=== PATIENT | female | born 1940 | race African-American/Black ===

== ENCOUNTER 2016-11-10 08:26 | Emergency (ER) | payer OTHER, MEDICAID ==
[~2016-11-10] VITALS: Ht 162.6 cm; Wt 182.0 kg
[~2016-11-10 08:26] MED LIST: AMLO2.5T45 PO; ATOR20TA65 PO; BIMA2.5D4 EACHEYE; BRIM5DRO EACHEYE; CLON0.1T PO; HYDR-4134 PO; LEVO50TA8 PO; LINA5TAB PO; LISI40TA4 PO; LOSA25TA12 PO; METF500T4 PO; NEBI5TAB3 PO; OMEP40CA34 PO; POTA10TA15 PO; XAR15 GT; XAR15 PO
[2016-11-10] MEDS ORDERED: METOCLOPRAMIDE HCL 10MG/2ML VIAL IV ONE (09:00)
[2016-11-10 09:38] LABS: EOSINOPHILS % 1.5 % (0.0-5.0); HEMATOCRIT. 32.9 % (36.0-48.0); HEMOGLOBIN. 10.9 g/dL (12.0-16.0); LYMPHOCYTES % 28.6 % (20.0-50.0); MEAN CORPUSCULAR HEMOGLOBIN 28.6 pg (28.0-32.0); MEAN CORPUSCULAR VOLUME 86.1 fL (81.0-99.0); MEAN PLATELET VOLUME 7.9 fl (7.4-10.4); MONOCYTES % 4.5 % (2.0-8.0); NEUTROPHILS % 64.4 % (40.0-76.0); PLATELET 297 x1000/uL (130-400); RED BLOOD CELL COUNT 3.82 mill/uL (4.2-5.4); RED CELL DISTRIBUTION WIDTH 14.8 % (11.6-14.6)
[2016-11-10 09:44] LABS: CARBON DIOXIDE 31 mEq/L (21-32); CHLORIDE 105 mEq/L (98-107)
[2016-11-10 15:28] VITALS: BP 151/89
== END 2016-11-10 15:32 | disposition home or self-care (01) ==
LOC: ER 08:39
DX: K59.09 Other constipation (principal); I10 Essential (primary) hypertension; E11.9 Type 2 diabetes mellitus without complications; Z88.6 Allergy status to analgesic agent; Z79.84 Long term (current) use of oral hypoglycemic drugs; Z86.73 Personal history of transient ischemic attack (TIA), and cerebral infarction without residual deficits; Z87.898 Personal history of other specified conditions; Z86.718 Personal history of other venous thrombosis and embolism; Z79.01 Long term (current) use of anticoagulants
CPT/HCPCS: 36415; 80053; 83690; 85025; 96374; 99284; J2765

== ENCOUNTER 2016-12-06 08:16 | Emergency (ER) | payer OTHER, MEDICAID ==
[~2016-12-06] VITALS: Ht 172.7 cm; Wt 160.0 kg
[2016-12-06] MEDS ORDERED: DIPHENHYDRAMINE 50MG/ML VIAL IV ONE (09:00)
[2016-12-06] MEDS ORDERED: ONDANSETRON HCL 4MG/2ML VIAL IV ONE (09:15)
[2016-12-06] MEDS ORDERED: MORPHINE SULFATE 4 MG/ML CPJ (NOT FOR IM USE) IV ONE (09:15)
[2016-12-06 09:23] LABS: BASOPHILS % 0.8 % (0.0-2.0); EOSINOPHILS % 2.4 % (0.0-5.0); HEMATOCRIT. 34.7 % (36.0-48.0); HEMOGLOBIN. 11.4 g/dL (12.0-16.0); LYMPHOCYTES % 35.4 % (20.0-50.0); MEAN CORPUSCULAR HEMOGLOBIN 28.6 pg (28.0-32.0); MEAN PLATELET VOLUME 7.5 fl (7.4-10.4); MONOCYTES % 4.5 % (2.0-8.0); NEUTROPHILS % 56.9 % (40.0-76.0); PLATELET 310 x1000/uL (130-400); RED BLOOD CELL COUNT 3.99 mill/uL (4.2-5.4); RED CELL DISTRIBUTION WIDTH 14.7 % (11.6-14.6)
[2016-12-06 09:25] LABS: CLARITY URINE CLOUDY (CLEAR); COLOR URINE YELLOW (YELLOW); GLUCOSE URINE 1+ (NEGATIVE); KETONES URINE NEGATIVE (NEGATIVE); LEUKOCYTE ESTERASE URINE 1+ (NEGATIVE); NITRITE URINE POSITIVE (NEGATIVE); OCCULT BLOOD URINE 1+ (NEGATIVE); PH URINE 6.5 (4.5-8.0); PROTEIN URINE 2+ (NEGATIVE); SPECIFIC GRAVITY URINE 1.023 (1.005-1.030)
[2016-12-06 09:30] LABS: CARBON DIOXIDE 30 mEq/L (21-32); CHLORIDE 105 mEq/L (98-107)
[2016-12-06] MEDS ORDERED: AMOXICILLIN/POTASSIUM CLAVULANATE 875/125MG TAB PO NR (11:15)
[2016-12-06 14:47] VITALS: BP 134/79
== END 2016-12-06 14:48 | disposition home or self-care (01) ==
LOC: ER 08:16
DX: N39.0 Urinary tract infection, site not specified (principal); E66.01 Morbid (severe) obesity due to excess calories; I10 Essential (primary) hypertension; E11.9 Type 2 diabetes mellitus without complications; E03.9 Hypothyroidism, unspecified; Z88.6 Allergy status to analgesic agent; Z68.43 Body mass index [BMI] 50.0-59.9, adult; Z86.718 Personal history of other venous thrombosis and embolism; Z79.899 Other long term (current) drug therapy
CPT/HCPCS: 36415; 74176; 80048; 81001; 85025; 93970; 99285; J2270; J2405

== ENCOUNTER 2016-12-10 20:22 | Emergency (ER) | payer OTHER, MEDICAID ==
[~2016-12-10] VITALS: Ht 165.1 cm; Wt 160.0 kg
[2016-12-10] MEDS ORDERED: OXYCODONE HCL/ACETAMINOPHEN 5/325MG TABLET PO ONE (22:00)
[2016-12-10] MEDS ORDERED: CEFTRIAXONE 1 G PREMIX 50 ML IV ONE (22:00)
[2016-12-10 22:44] LABS: BASOPHILS % 0.9 % (0.0-2.0); CHLORIDE 106 mEq/L (98-107); EOSINOPHILS % 2.8 % (0.0-5.0); HEMATOCRIT. 32.6 % (36.0-48.0); HEMOGLOBIN. 10.9 g/dL (12.0-16.0); LYMPHOCYTES % 37.9 % (20.0-50.0); MEAN CORPUSCULAR HEMOGLOBIN 28.8 pg (28.0-32.0); MEAN PLATELET VOLUME 7.6 fl (7.4-10.4); NEUTROPHILS % 52.4 % (40.0-76.0); PLATELET 314 x1000/uL (130-400); RED BLOOD CELL COUNT 3.79 mill/uL (4.2-5.4); RED CELL DISTRIBUTION WIDTH 14.7 % (11.6-14.6)
[2016-12-10 22:50] LABS: CARBON DIOXIDE 30 mEq/L (21-32)
[2016-12-11 02:13] VITALS: BP 155/76
[2016-12-11 02:24] LABS: CLARITY URINE CLEAR (CLEAR); COLOR URINE DARK YELLOW (YELLOW); GLUCOSE URINE TRACE (NEGATIVE); KETONES URINE NEGATIVE (NEGATIVE); LEUKOCYTE ESTERASE URINE NEGATIVE (NEGATIVE); NITRITE URINE NEGATIVE (NEGATIVE); OCCULT BLOOD URINE 2+ (NEGATIVE); PROTEIN URINE 2+ (NEGATIVE); SPECIFIC GRAVITY URINE 1.032 (1.005-1.030); UROBILINOGEN URINE 0.2 E.U./dL (0.2-1.0)
== END 2016-12-11 05:25 | disposition home or self-care (01) ==
LOC: ER 20:50
DX: N39.0 Urinary tract infection, site not specified (principal); E11.9 Type 2 diabetes mellitus without complications; I10 Essential (primary) hypertension; Z86.718 Personal history of other venous thrombosis and embolism; Z87.442 Personal history of urinary calculi; Z88.6 Allergy status to analgesic agent
CPT/HCPCS: 36415; 51702; 80048; 81001; 85025; 87086; 96365; 99284; J0696; A4315

== ENCOUNTER 2017-04-11 10:37 | Observation (INO) | payer OTHER, MEDICAID ==
[~2017-04-11] VITALS: Ht 165.1 cm; Wt 217.7 kg
[~2017-04-11 10:37] MED LIST changes: +METF-414 PO; -METF500T4 PO
[2017-04-11 11:49] LABS: BASOPHILS % 0.6 % (0.0-2.0); EOSINOPHILS % 0.2 % (0.0-5.0); HEMOGLOBIN. 12.1 g/dL (12.0-16.0); LYMPHOCYTES % 13.3 % (20.0-50.0); MEAN CORPUSCULAR VOLUME 85.8 fL (81.0-99.0); MEAN PLATELET VOLUME 7.5 fl (7.4-10.4); MONOCYTES % 3.5 % (2.0-8.0); NEUTROPHILS % 82.4 % (40.0-76.0); PLATELET 307 x1000/uL (130-400); RED BLOOD CELL COUNT 4.31 mill/uL (4.2-5.4); RED CELL DISTRIBUTION WIDTH 15.2 % (11.6-14.6)
[2017-04-11 12:02] LABS: INR 1.2; PARTIAL THROMBOPLASTIN TIME 32.1 sec (23.4-31.0); PROTHROMBIN TIME 12.4 sec (9.4-11.6)
[2017-04-11 12:07] LABS: CHLORIDE 107 mEq/L (98-107)
[2017-04-11 12:57] LABS: CLARITY URINE CLEAR (CLEAR); COLOR URINE YELLOW (YELLOW); KETONES URINE TRACE (NEGATIVE); LEUKOCYTE ESTERASE URINE NEGATIVE (NEGATIVE); NITRITE URINE NEGATIVE (NEGATIVE); OCCULT BLOOD URINE NEGATIVE (NEGATIVE); PROTEIN URINE 2+ (NEGATIVE); SPECIFIC GRAVITY URINE 1.021 (1.005-1.030)
[2017-04-11] MEDS ORDERED: ASPIRIN 81MG TABLET PO ONE (13:45)
[2017-04-11 20:40] VITALS: BP 153/67
[2017-04-11 21:26] VITALS: BP 153/67
[2017-04-11] MEDS ORDERED: HYDROCODONE/ACETAMINOPHEN 5/325MG TABLET PO PRN (21:45)
[2017-04-11] MEDS ORDERED: DEXTROSE 50% WATER 50ML SYRINGE IV PRN (21:45)
[2017-04-11] MEDS ORDERED: ONDANSETRON HCL 4MG/2ML INJ IV PRN (21:45)
[2017-04-11 22:46] LABS: CREATINE KINASE 85 IU/L (26-192); CREATINE KINASE MB FRACTION 1.2 ng/mL (0.5-3.6)
[2017-04-11] MEDS: METOPROLOL TARTRATE 50MG TABLET PO SCH (22:50)
[2017-04-11] MEDS: LISINOPRIL 40MG TABLET PO SCH (22:50)
[2017-04-11] MEDS: RIVAROXABAN 15 MG TABLET PO SCH (22:51)
[2017-04-12] VITALS (7 sets, daily range): BP systolic 142–165; BP diastolic 50–76
[2017-04-12] MEDS: INSULIN LISPRO 100 UNITS/ML SUBCUT SCH ×4 (05:58→21:11)
[2017-04-12] MEDS: BLOOD SUGAR DIAGNOSTIC STRIP TEST SCH ×4 (05:58→21:11)
[2017-04-12 06:36] LABS: BASOPHILS % 0.8 % (0.0-2.0); EOSINOPHILS % 1.4 % (0.0-5.0); HEMATOCRIT. 31.8 % (36.0-48.0); HEMOGLOBIN. 10.6 g/dL (12.0-16.0); LYMPHOCYTES % 27.5 % (20.0-50.0); MEAN CORPUSCULAR HEMOGLOBIN 28.7 pg (28.0-32.0); MEAN CORPUSCULAR VOLUME 85.8 fL (81.0-99.0); MEAN PLATELET VOLUME 7.9 fl (7.4-10.4); MONOCYTES % 5.2 % (2.0-8.0); NEUTROPHILS % 65.1 % (40.0-76.0); PLATELET 291 x1000/uL (130-400); RED BLOOD CELL COUNT 3.71 mill/uL (4.2-5.4); RED CELL DISTRIBUTION WIDTH 15.1 % (11.6-14.6)
[2017-04-12 06:51] LABS: CHLORIDE 108 mEq/L (98-107); CREATINE KINASE 97 IU/L (26-192); CREATINE KINASE MB FRACTION 1.1 ng/mL (0.5-3.6); HDL CHOLESTEROL 44 mg/dL (40-59); LDL CHOLESTEROL 100 mg/dL (5-100); T4 FREE 1.13 ng/dL (0.76-1.46)
[2017-04-12] MEDS: FAMOTIDINE 20MG/2ML VIAL IV SCH ×2 (08:19→21:10)
[2017-04-12] MEDS: ASPIRIN 81MG EC TABLET PO SCH (08:20)
[2017-04-12] MEDS: LISINOPRIL 40MG TABLET PO SCH (08:20)
[2017-04-12] MEDS: LINAGLIPTIN 5MG TABLET PO SCH (08:20)
[2017-04-12] MEDS: METOPROLOL TARTRATE 50MG TABLET PO SCH ×2 (08:20→21:10)
[2017-04-12] MEDS ORDERED: FUROSEMIDE 40MG/4ML VIAL IVP NR (14:15)
[2017-04-12] MEDS ORDERED: LOSA25TA12 PO (15:19)
[2017-04-12] MEDS ORDERED: HYDR-4134 PO (15:20)
[2017-04-12] MEDS: RIVAROXABAN 15 MG TABLET PO SCH (17:38)
[2017-04-13] VITALS: BP 168/68
[2017-04-13] MEDS: CLONIDINE 0.1MG TABLET PO PRN ×2 (00:08→09:42)
[2017-04-13 04:00] VITALS: BP 162/66
[2017-04-13] MEDS: INSULIN LISPRO 100 UNITS/ML SUBCUT SCH (06:46)
[2017-04-13] MEDS: BLOOD SUGAR DIAGNOSTIC STRIP TEST SCH (06:46)
[2017-04-13 08:00] VITALS: BP 186/75
[2017-04-13] MEDS: LISINOPRIL 40MG TABLET PO SCH (09:41)
[2017-04-13] MEDS: ASPIRIN 81MG EC TABLET PO SCH (09:41)
[2017-04-13] MEDS: FAMOTIDINE 20MG/2ML VIAL IV SCH (09:42)
[2017-04-13] MEDS: LINAGLIPTIN 5MG TABLET PO SCH (09:42)
[2017-04-13] MEDS: METOPROLOL TARTRATE 50MG TABLET PO SCH (09:42)
[2017-05-19] MEDS ORDERED: PILO15DR36 OP (23:31)
[2017-05-19] MEDS ORDERED: PRED1DRO LEFTEYE (23:31)
[2017-05-19] MEDS ORDERED: CYCL2DRO4 LEFTEYE (23:31)
[2017-05-19] MEDS ORDERED: TRU10 EACHEYE (23:31)
== END 2017-04-13 12:30 | disposition home or self-care (01) ==
LOC: ER 10:37 → 8WST 13:50 → INTOOBSV 13:50 → ENRESERV 19:17
PROVIDERS: ADMIT Internal Medicine; ATTEND Internal Medicine
DX: I11.0 Hypertensive heart disease with heart failure (principal); I50.9 Heart failure, unspecified; E11.9 Type 2 diabetes mellitus without complications; D64.9 Anemia, unspecified; E66.01 Morbid (severe) obesity due to excess calories; Z87.442 Personal history of urinary calculi; Z99.3 Dependence on wheelchair; Z86.718 Personal history of other venous thrombosis and embolism
CPT/HCPCS: 36415; 51702; 71045; 80053; 80061; 81003; 82550; 82553; 82962; 83690; 84439; 84443; 84484; 85025; 85379; 85610; 85730; 93005; 93306; 96372; 96374; 96376; 99285; G0378; J1815; J3490; A4315

== ENCOUNTER 2017-11-12 14:05 | Inpatient (IN) | payer OTHER, MEDICAID ==
[~2017-11-12] VITALS: Ht 162.6 cm; Wt 147.4 kg
[~2017-11-12 14:05] MED LIST changes: -AMLO2.5T45 PO; +CYCL2DRO4 LEFTEYE; -LISI40TA4 PO; -METF-414 PO; +METF500T6 PO; -NEBI5TAB3 PO; +PILO15DR36 OP; +PRED1DRO LEFTEYE; +TRU10 EACHEYE; -XAR15 GT
[2017-11-12 16:10] LABS: BASOPHILS % 0.8 % (0.0-2.0); EOSINOPHILS % 1.4 % (0.0-5.0); HEMATOCRIT. 36.6 % (36.0-48.0); HEMOGLOBIN. 12.1 g/dL (12.0-16.0); LYMPHOCYTES % 25.8 % (20.0-50.0); MEAN CORPUSCULAR HEMOGLOBIN 29.4 pg (28.0-32.0); MEAN CORPUSCULAR VOLUME 88.6 fL (81.0-99.0); MEAN PLATELET VOLUME 8.5 fl (7.4-10.4); MONOCYTES % 4.1 % (2.0-8.0); NEUTROPHILS % 67.9 % (40.0-76.0); PLATELET 314 x1000/uL (130-400); RED BLOOD CELL COUNT 4.12 mill/uL (4.2-5.4); RED CELL DISTRIBUTION WIDTH 14.9 % (11.6-14.6)
[2017-11-12 16:11] LABS: CHLORIDE 104 mEq/L (98-107); INR 1.1
[2017-11-12 22:30] VITALS: BP 154/73
[2017-11-12] MEDS ORDERED: HYDROCODONE/ACETAMINOPHEN 5/325MG TABLET PO PRN (23:15)
[2017-11-12] MEDS ORDERED: ACETAMINOPHEN 325MG TABLET PO PRN (23:15)
[2017-11-12] MEDS ORDERED: DEXTROSE 50% WATER 50ML SYRINGE IV PRN (23:30)
[2017-11-13] VITALS: BP 154/73
[2017-11-13] MEDS: SODIUM CHLORIDE 0.45% 1,000 ML IV SCH ×2 (00:29→16:38)
[2017-11-13 04:00] VITALS: BP 116/65
[2017-11-13] MEDS: HYDRALAZINE HCL 50MG TABLET PO SCH ×3 (06:23→21:13)
[2017-11-13] MEDS: PANTOPRAZOLE 40MG DR TABLET PO SCH (06:23)
[2017-11-13] MEDS: BLOOD SUGAR DIAGNOSTIC STRIP TEST SCH ×4 (06:24→21:10)
[2017-11-13] MEDS: INSULIN LISPRO 100 UNITS/ML SUBCUT SCH ×4 (06:24→21:12)
[2017-11-13 07:28] LABS: CHLORIDE 104 mEq/L (98-107)
[2017-11-13 07:48] LABS: LDL CHOLESTEROL 94 mg/dL (5-100)
[2017-11-13 07:50] LABS: HDL CHOLESTEROL 37 mg/dL (40-59)
[2017-11-13 08:00] VITALS: BP 162/62
[2017-11-13] MEDS: ASPIRIN 81MG TABLET PO SCH (08:33)
[2017-11-13] MEDS: LOSARTAN POTASSIUM 50 MG TABLET PO SCH ×2 (08:34→20:18)
[2017-11-13 12:00] VITALS: BP 170/74
[2017-11-13 16:08] VITALS: BP 161/74
[2017-11-13] MEDS: RIVAROXABAN 10 MG TABLET PO SCH (16:39)
[2017-11-13 20:00] VITALS: BP 157/61
[2017-11-14] VITALS: BP 165/70
[2017-11-14 04:00] VITALS: BP 155/77
[2017-11-14] MEDS: HYDRALAZINE HCL 50MG TABLET PO SCH ×3 (05:32→23:14)
[2017-11-14] MEDS: PANTOPRAZOLE 40MG DR TABLET PO SCH (06:22)
[2017-11-14] MEDS: BLOOD SUGAR DIAGNOSTIC STRIP TEST SCH ×4 (06:23→20:31)
[2017-11-14] MEDS: INSULIN LISPRO 100 UNITS/ML SUBCUT SCH ×4 (06:23→20:33)
[2017-11-14 08:00] VITALS: BP 169/71
[2017-11-14] MEDS: LOSARTAN POTASSIUM 50 MG TABLET PO SCH ×2 (08:04→20:25)
[2017-11-14] MEDS: ASPIRIN 81MG TABLET PO SCH (08:04)
[2017-11-14] MEDS: SODIUM CHLORIDE 0.45% 1,000 ML IV SCH (08:06)
[2017-11-14] MEDS ORDERED: METOCLOPRAMIDE HCL 10MG/2ML VIAL IV PRN (10:15)
[2017-11-14 12:00] VITALS: BP 143/60
[2017-11-14] MEDS ORDERED: METOCLOPRAMIDE HCL 10MG/2ML VIAL IV SCH (12:00)
[2017-11-14] MEDS ORDERED: LIDOCAINE HCL 1% 10 MG/ML 10ML VIAL ONE (12:45)
[2017-11-14] MEDS ORDERED: IOHEXOL-300 100 ML BOTTLE ONE (15:47)
[2017-11-14 16:00] VITALS: BP 157/71
[2017-11-14] MEDS: RIVAROXABAN 10 MG TABLET PO SCH (16:24)
[2017-11-14 16:33] LABS: BG CARBOXYHEMOGLOBIN 0.3 % (0.5-1.5); BG DEOXYHEMOGLOBIN 4.5 % (0.0-5.0); BG FRACTION INSPIRED OXYGEN 21; BG HCO3 ACT 28.7 mmol/L (22.0-26.0); BG METHEMOGLOBIN 0.2 % (0.0-1.5); BG OXYGEN SATURATION 95.5 % (92.0-98.5); BG PCO2 43.5 mmHg (35.0-45.0); BG PH 7.437 (7.350-7.450); BG PO2 75.1 mmHg (75.0-100.0); BG SAMPLE SITE LEFT RADIAL
[2017-11-14 20:00] VITALS: BP 138/69
[2017-11-14] MEDS ORDERED: LOSARTAN POTASSIUM 50 MG TABLET PO SCH (21:00)
[2017-11-15] VITALS (7 sets, daily range): BP systolic 113–182; BP diastolic 60–81
[2017-11-15] MEDS: HYDRALAZINE HCL 50MG TABLET PO SCH ×3 (06:34→21:47)
[2017-11-15] MEDS: PANTOPRAZOLE 40MG DR TABLET PO SCH (06:34)
[2017-11-15] MEDS: INSULIN LISPRO 100 UNITS/ML SUBCUT SCH ×4 (06:40→21:00)
[2017-11-15] MEDS: BLOOD SUGAR DIAGNOSTIC STRIP TEST SCH ×4 (06:41→21:00)
[2017-11-15] MEDS: ASPIRIN 81MG TABLET PO SCH (08:16)
[2017-11-15] MEDS: LOSARTAN POTASSIUM 50 MG TABLET PO SCH ×2 (08:16→21:00)
[2017-11-15] MEDS: RIVAROXABAN 10 MG TABLET PO SCH (17:09)
[2017-11-16] MEDS: HYDRALAZINE HCL 50MG TABLET PO SCH (02:40)
== END 2017-11-16 03:45 | disposition home or self-care (01) | DRG 313 ==
LOC: ER 14:56 → EDBEDREQTM 16:32 → EDBEDREQ 16:32 → 8WST 20:25 → ENRESERV 20:25 → EDBEDREQ 21:47
PROVIDERS: ADMIT Internal Medicine; ATTEND Internal Medicine
PROC: 05HY33Z Insertion of Infusion Device into Upper Vein, Percutaneous Approach (ICD-10-PCS; principal; 2017-11-14)
PROC: B54MZZZ Ultrasonography of Right Upper Extremity Veins (ICD-10-PCS; 2017-11-14)
DX: R07.89 Other chest pain (principal); Z68.43 Body mass index [BMI] 50.0-59.9, adult; E03.9 Hypothyroidism, unspecified; E11.9 Type 2 diabetes mellitus without complications; H40.9 Unspecified glaucoma; I10 Essential (primary) hypertension; E66.01 Morbid (severe) obesity due to excess calories; Z86.718 Personal history of other venous thrombosis and embolism; Z86.73 Personal history of transient ischemic attack (TIA), and cerebral infarction without residual deficits; Z87.442 Personal history of urinary calculi; Z88.8 Allergy status to other drugs, medicaments and biological substances; Z79.899 Other long term (current) drug therapy; Z79.01 Long term (current) use of anticoagulants; Z98.51 Tubal ligation status
CPT/HCPCS: 36415; 36569; 36600; 71045; 71275; 74176; 76770; 76937; 80053; 80061; 82375; 82805; 82962; 83880; 84443; 84484; 85025; 85610; 93005; 93970; 96360; 99285; A6261; C1725; C1892; J1815; J3490; Q9967

== ENCOUNTER 2018-03-04 14:17 | Emergency (ER) | payer MEDICARE, MEDICAID ==
[~2018-03-04] VITALS: Ht 170.2 cm; Wt 160.0 kg
[~2018-03-04 14:17] MED LIST changes: +METF-414 PO; -METF500T6 PO
[2018-03-04] MEDS ORDERED: MORPHINE SULFATE 4 MG/ML CPJ (NOT FOR IM USE) IV STA (14:50)
[2018-03-04] MEDS ORDERED: ACETAMINOPHEN 325MG TABLET PO ONE (15:00)
[2018-03-04 16:49] LABS: CHLORIDE 108 mEq/L (98-107)
[2018-03-04 16:53] LABS: BASOPHILS % 0.8 % (0.0-2.0); EOSINOPHILS % 1.9 % (0.0-5.0); HEMATOCRIT. 35.4 % (36.0-48.0); HEMOGLOBIN. 11.2 g/dL (12.0-16.0); LYMPHOCYTES % 33.9 % (20.0-50.0); MEAN CORPUSCULAR HEMOGLOBIN 28.1 pg (28.0-32.0); MEAN CORPUSCULAR VOLUME 88.3 fL (81.0-99.0); MEAN PLATELET VOLUME 8.2 fl (7.4-10.4); MONOCYTES % 4.8 % (2.0-8.0); NEUTROPHILS % 58.6 % (40.0-76.0); PLATELET 312 x1000/uL (130-400); RED CELL DISTRIBUTION WIDTH 15.4 % (11.6-14.6)
[2018-03-04 19:32] VITALS: BP 157/89
== END 2018-03-04 20:37 | disposition home or self-care (01) ==
LOC: ER 14:17
DX: R07.89 Other chest pain (principal); E11.9 Type 2 diabetes mellitus without complications; I10 Essential (primary) hypertension; Z86.718 Personal history of other venous thrombosis and embolism; H40.9 Unspecified glaucoma; E03.9 Hypothyroidism, unspecified; Z87.442 Personal history of urinary calculi; Z86.73 Personal history of transient ischemic attack (TIA), and cerebral infarction without residual deficits; Z98.51 Tubal ligation status; Z88.6 Allergy status to analgesic agent; Z79.84 Long term (current) use of oral hypoglycemic drugs; Z79.899 Other long term (current) drug therapy
CPT/HCPCS: 36415; 71045; 76641; 83880; 84484; 93005; 99284

== ENCOUNTER 2018-03-13 15:32 | Inpatient (IN) | payer MEDICARE, MEDICAID ==
[~2018-03-13] VITALS: Ht 162.6 cm; Wt 152.0 kg
[2018-03-13] MEDS ORDERED: MORPHINE SULFATE 4 MG/ML CPJ (NOT FOR IM USE) IV STA (15:50)
[2018-03-13] MEDS ORDERED: ONDANSETRON HCL 4MG/2ML INJ IV STA (15:50)
[2018-03-13 17:24] LABS: BASOPHILS % 1.1 % (0.0-2.0); EOSINOPHILS % 1.5 % (0.0-5.0); HEMOGLOBIN. 11.4 g/dL (12.0-16.0); LYMPHOCYTES % 33.7 % (20.0-50.0); MEAN CORPUSCULAR HEMOGLOBIN 28.5 pg (28.0-32.0); MEAN CORPUSCULAR VOLUME 87.7 fL (81.0-99.0); MEAN PLATELET VOLUME 8.2 fl (7.4-10.4); MONOCYTES % 4.8 % (2.0-8.0); NEUTROPHILS % 58.9 % (40.0-76.0); PLATELET 280 x1000/uL (130-400); RED BLOOD CELL COUNT 3.99 mill/uL (4.2-5.4); RED CELL DISTRIBUTION WIDTH 15.7 % (11.6-14.6)
[2018-03-13 17:25] LABS: CHLORIDE 108 mEq/L (98-107)
[2018-03-13 17:27] LABS: INR 1.3; PARTIAL THROMBOPLASTIN TIME 35.2 sec (23.4-31.0); PROTHROMBIN TIME 12.6 sec (9.1-11.1)
[2018-03-13 17:37] LABS: CREATINE KINASE 32 IU/L (26-192)
[2018-03-13 22:30] VITALS: BP 144/60
[2018-03-14] VITALS: BP 140/60
[2018-03-14] MEDS ORDERED: DEXTROSE 50% WATER 50ML SYRINGE IV PRN (00:30)
[2018-03-14] MEDS ORDERED: MEDICATION NOT ON FORMULARY EA (Metformin Hcl 500 MG) PO SCH ×2 (00:30→07:50)
[2018-03-14] MEDS ORDERED: CLONIDINE 0.1MG TABLET PO PRN (00:30)
[2018-03-14] MEDS ORDERED: MEDICATION NOT ON FORMULARY EA (Hydralazine Hcl 1 TAB) PO SCH ×2 (00:30→09:00)
[2018-03-14 04:00] VITALS: BP 144/58
[2018-03-14] MEDS: OMEPRAZOLE 20MG CAPSULE EXTENDED RELEASE PO SCH (06:34)
[2018-03-14] MEDS: BLOOD SUGAR DIAGNOSTIC STRIP TEST SCH ×4 (06:34→21:57)
[2018-03-14] MEDS: LEVOTHYROXINE SODIUM 50MCG TABLET PO SCH (06:34)
[2018-03-14] MEDS: INSULIN LISPRO 100 UNITS/ML SUBCUT SCH ×4 (07:50→21:00)
[2018-03-14 08:03] LABS: LDL CHOLESTEROL 82 mg/dL (5-100)
[2018-03-14 08:06] LABS: HDL CHOLESTEROL 44 mg/dL (40-59); T4 FREE 1.39 ng/dL (0.76-1.46)
[2018-03-14] MEDS ORDERED: RIVAROXABAN 15 MG TABLET PO SCH (09:00)
[2018-03-14] MEDS ORDERED: MEDICATION NOT ON FORMULARY EA (Losartan Potassium 1 TAB) PO SCH (09:00)
[2018-03-14] MEDS ORDERED: MEDICATION NOT ON FORMULARY EA (Omeprazole 40 MG) PO SCH (09:00)
[2018-03-14] MEDS ORDERED: LINAGLIPTIN PO SCH (09:00)
[2018-03-14] MEDS ORDERED: MEDICATION NOT ON FORMULARY EA (Potassium Chloride 1 TAB) PO SCH (09:00)
[2018-03-14] MEDS ORDERED: HYDRALAZINE HCL 25MG TABLET PO SCH (09:00)
[2018-03-14] MEDS: ASPIRIN 81MG TABLET PO SCH (11:01)
[2018-03-14] MEDS: LINAGLIPTIN 5MG TABLET PO SCH (11:01)
[2018-03-14] MEDS: METFORMIN HCL 500MG TABLET PO SCH ×2 (11:01→17:46)
[2018-03-14] MEDS: POTASSIUM CHLORIDE 10MEQ TABLET SR PO SCH (11:01)
[2018-03-14] MEDS: LOSARTAN POTASSIUM 25 MG TABLET PO SCH ×2 (11:02→21:58)
[2018-03-14 12:00] VITALS: BP 154/71
[2018-03-14] MEDS ORDERED: VANCOMYCIN 2,000 MG in DEXT 5% WATER 500 ML IV NR (15:00)
[2018-03-14 16:00] VITALS: BP 150/74
[2018-03-14] MEDS: CEPHALEXIN 250MG CAPSULE PO SCH (17:47)
[2018-03-14 20:38] VITALS: BP 129/60
[2018-03-14] MEDS ORDERED: ATORVASTATIN CALCIUM 20MG TABLET PO SCH (21:00)
[2018-03-14] MEDS: HYDRALAZINE HCL 25MG TABLET PO SCH (21:58)
[2018-03-14 22:33] LABS: HEMATOCRIT 32.9 % (36.0-48.0); HEMOGLOBIN 10.7 g/dL (12.0-16.0); MEAN CORPUSCULAR HEMOGLOBIN 28.6 pg (28.0-32.0); PLATELET 256 x1000/uL (130-400); RED BLOOD CELL COUNT 3.74 mill/uL (4.2-5.4); RED CELL DISTRIBUTION WIDTH 15.8 % (11.6-14.6)
[2018-03-15] MEDS: CEPHALEXIN 250MG CAPSULE PO SCH ×3 (00:08→12:32)
[2018-03-15 00:28] VITALS: BP 150/61
[2018-03-15 04:43] VITALS: BP 118/64
[2018-03-15] MEDS: LEVOTHYROXINE SODIUM 50MCG TABLET PO SCH (06:43)
[2018-03-15] MEDS: OMEPRAZOLE 20MG CAPSULE EXTENDED RELEASE PO SCH (06:43)
[2018-03-15] MEDS: BLOOD SUGAR DIAGNOSTIC STRIP TEST SCH (06:44)
[2018-03-15] MEDS: INSULIN LISPRO 100 UNITS/ML SUBCUT SCH (07:50)
[2018-03-15 08:00] VITALS: BP 170/76
[2018-03-15] MEDS: LOSARTAN POTASSIUM 25 MG TABLET PO SCH (08:15)
[2018-03-15] MEDS: LINAGLIPTIN 5MG TABLET PO SCH (08:15)
[2018-03-15] MEDS: POTASSIUM CHLORIDE 10MEQ TABLET SR PO SCH (08:15)
[2018-03-15] MEDS: ASPIRIN 81MG TABLET PO SCH (08:15)
[2018-03-15] MEDS: HYDRALAZINE HCL 25MG TABLET PO SCH (08:16)
[2018-03-15] MEDS: METFORMIN HCL 500MG TABLET PO SCH (08:16)
[2018-03-15 08:20] LABS: HEMATOCRIT 32.3 % (36.0-48.0); HEMOGLOBIN 10.4 g/dL (12.0-16.0); MEAN CORPUSCULAR HEMOGLOBIN 28.4 pg (28.0-32.0); MEAN CORPUSCULAR VOLUME 88.6 fL (81.0-99.0); PLATELET 248 x1000/uL (130-400); RED BLOOD CELL COUNT 3.65 mill/uL (4.2-5.4); RED CELL DISTRIBUTION WIDTH 15.7 % (11.6-14.6)
[2018-03-15 08:33] LABS: CHLORIDE 107 mEq/L (98-107)
[2018-03-15] MEDS ORDERED: VANCOMYCIN 1250MG in DEXTROSE 5% WATER 250ML IV SCH (09:00)
[2018-03-15 10:43] VITALS: BP_SYST 148; BP_SYST 170; BP_DIAS 69; BP_DIAS 76
[2018-03-15 12:00] VITALS: BP 148/69
[2018-03-15 13:41] VITALS: BP 157/77
== END 2018-03-15 14:03 | disposition home or self-care (01) | DRG 600 ==
LOC: ER 15:32 → EDBEDREQ 18:23 → ENRESERV 20:06 → 6WST 21:00
PROVIDERS: ADMIT Internal Medicine; ATTEND Internal Medicine
DX: N63.20 Unspecified lump in the left breast, unspecified quadrant (principal); J98.11 Atelectasis; Z68.43 Body mass index [BMI] 50.0-59.9, adult; I82.509 Chronic embolism and thrombosis of unspecified deep veins of unspecified lower extremity; D64.9 Anemia, unspecified; E03.9 Hypothyroidism, unspecified; I11.9 Hypertensive heart disease without heart failure; E11.65 Type 2 diabetes mellitus with hyperglycemia; E66.01 Morbid (severe) obesity due to excess calories; E78.5 Hyperlipidemia, unspecified; E86.0 Dehydration; H40.9 Unspecified glaucoma; R07.89 Other chest pain; I45.10 Unspecified right bundle-branch block; N20.0 Calculus of kidney; Z86.73 Personal history of transient ischemic attack (TIA), and cerebral infarction without residual deficits; Z87.442 Personal history of urinary calculi; Z79.899 Other long term (current) drug therapy; Z79.84 Long term (current) use of oral hypoglycemic drugs; Z88.6 Allergy status to analgesic agent
CPT/HCPCS: 36415; 71045; 80048; 80061; 82550; 82962; 83036; 83605; 83880; 84439; 84443; 84484; 85027; 86300; 93005; 96374; 96375; 99285; A6261; J1815; J2270; J2405; J3370; J7060

== ENCOUNTER 2018-03-23 10:10 | Emergency (ER) | payer MEDICARE, MEDICAID ==
[~2018-03-23] VITALS: Ht 172.7 cm; Wt 162.0 kg
[2018-03-23] MEDS ORDERED: HYDROCODONE/ACETAMINOPHEN 5/325MG TABLET PO ONE (11:45)
[2018-03-23 14:50] VITALS: BP 158/70
== END 2018-03-23 14:53 | disposition home or self-care (01) ==
LOC: ER 10:31
DX: N64.4 Mastodynia (principal); I10 Essential (primary) hypertension; E11.9 Type 2 diabetes mellitus without complications; Z79.84 Long term (current) use of oral hypoglycemic drugs; Z88.6 Allergy status to analgesic agent; Z79.899 Other long term (current) drug therapy; Z86.73 Personal history of transient ischemic attack (TIA), and cerebral infarction without residual deficits; Z86.718 Personal history of other venous thrombosis and embolism
CPT/HCPCS: 93005; 99283

== ENCOUNTER 2018-05-06 13:03 | Inpatient (IN) | payer MEDICARE, MEDICAID ==
[~2018-05-06] VITALS: Ht 165.1 cm; Wt 156.5 kg
[2018-05-06 14:22] LABS: CHLORIDE 105 mEq/L (98-107)
[2018-05-06 14:59] LABS: BASOPHILS % 0.7 % (0.0-2.0); EOSINOPHILS % 1.8 % (0.0-5.0); HEMATOCRIT. 35.4 % (36.0-48.0); HEMOGLOBIN. 11.6 g/dL (12.0-16.0); LYMPHOCYTES % 31.4 % (20.0-50.0); MEAN CORPUSCULAR HEMOGLOBIN 28.5 pg (28.0-32.0); MEAN CORPUSCULAR VOLUME 87.1 fL (81.0-99.0); MEAN PLATELET VOLUME 7.9 fl (7.4-10.4); MONOCYTES % 4.2 % (2.0-8.0); NEUTROPHILS % 61.9 % (40.0-76.0); PLATELET 328 x1000/uL (130-400); RED BLOOD CELL COUNT 4.07 mill/uL (4.2-5.4)
[2018-05-06] MEDS ORDERED: IOHEXOL-350 100 ML BOTTLE ONE (15:20)
[2018-05-06] MEDS ORDERED: IPRATROPIUM/ALBUTEROL 0.5-3(2.5)MG/3ML NEB INH PRN (17:30)
[2018-05-06] MEDS ORDERED: HYDROCODONE/ACETAMINOPHEN 5/325MG TABLET PO PRN (17:30)
[2018-05-06] MEDS ORDERED: ACETAMINOPHEN 650MG SUPP PR PRN (17:30)
[2018-05-06] MEDS ORDERED: ONDANSETRON HCL 4MG/2ML INJ IV PRN (17:30)
[2018-05-06] MEDS ORDERED: NA PHOS,M-B/NA PHOS,DI-BA ENEMA 118ML PR PRN (17:30)
[2018-05-06] MEDS ORDERED: DOCUSATE SODIUM 100MG CAPSULE PO PRN (17:30)
[2018-05-06] MEDS ORDERED: MEDICATION NOT ON FORMULARY EA (Metformin Hcl 500 MG) PO SCH (17:30)
[2018-05-06] MEDS ORDERED: MEDICATION NOT ON FORMULARY EA (Hydralazine Hcl 1 TAB) PO SCH (17:30)
[2018-05-06] MEDS ORDERED: DIPHENHYDRAMINE 50MG/ML VIAL IV PRN (17:30)
[2018-05-06] MEDS ORDERED: LORAZEPAM 0.5MG TABLET PO PRN (17:30)
[2018-05-06] MEDS ORDERED: MAGNESIUM/ALUMINUM HYDROXIDE/SIMETHICONE 30ML UDC PO PRN (17:30)
[2018-05-06] MEDS ORDERED: ACETAMINOPHEN 325MG TABLET PO PRN (17:30)
[2018-05-06] MEDS ORDERED: GUAIFENESIN 200MG/10ML SUGAR FREE UDC PO PRN (17:30)
[2018-05-06] MEDS ORDERED: DEXTROSE 50% WATER 50ML SYRINGE IV PRN (17:45)
[2018-05-06 20:00] VITALS: BP 172/77
[2018-05-06] MEDS: BLOOD SUGAR DIAGNOSTIC STRIP TEST SCH (21:15)
[2018-05-06] MEDS: ATORVASTATIN CALCIUM 20MG TABLET PO SCH (21:30)
[2018-05-06] MEDS: CLONIDINE 0.1MG TABLET PO PRN (21:30)
[2018-05-06] MEDS: INSULIN LISPRO 100 UNITS/ML SUBCUT SCH (21:32)
[2018-05-07] VITALS (8 sets, daily range): BP systolic 97–181; BP diastolic 68–79
[2018-05-07] MEDS: LOSARTAN POTASSIUM 25 MG TABLET PO SCH ×2 (01:53→09:54)
[2018-05-07] MEDS: HYDRALAZINE HCL 25MG TABLET PO SCH ×2 (01:53→09:54)
[2018-05-07 04:50] LABS: CLARITY URINE CLEAR (CLEAR); COLOR URINE YELLOW (YELLOW); KETONES URINE NEGATIVE (NEGATIVE); LEUKOCYTE ESTERASE URINE NEGATIVE (NEGATIVE); NITRITE URINE NEGATIVE (NEGATIVE); OCCULT BLOOD URINE 2+ (NEGATIVE); PROTEIN URINE 2+ (NEGATIVE); SPECIFIC GRAVITY URINE 1.072 (1.005-1.030)
[2018-05-07] MEDS: BLOOD SUGAR DIAGNOSTIC STRIP TEST SCH ×4 (06:05→21:46)
[2018-05-07] MEDS: INSULIN LISPRO 100 UNITS/ML SUBCUT SCH ×4 (06:18→22:06)
[2018-05-07] MEDS ORDERED: OMEPRAZOLE 20MG CAPSULE EXTENDED RELEASE PO SCH (06:45)
[2018-05-07] MEDS ORDERED: LEVOTHYROXINE SODIUM 50MCG TABLET PO SCH (06:45)
[2018-05-07] MEDS ORDERED: CYCLOPENTOLATE HCL 1% OPHTH DROPS 2ML LEFTEYE SCH (09:00)
[2018-05-07] MEDS ORDERED: LINAGLIPTIN 5MG TABLET PO SCH (09:00)
[2018-05-07] MEDS: DORZOLAMIDE 2% OPHTH 10 ML BOTTLE EACHEYE SCH ×3 (09:00→17:00)
[2018-05-07] MEDS ORDERED: MEDICATION NOT ON FORMULARY EA (Omeprazole 40 MG) PO SCH (09:00)
[2018-05-07] MEDS: PREDNISOLONE ACETATE 1% OPHTH DROPS 1ML LEFTEYE SCH ×3 (09:00→17:00)
[2018-05-07] MEDS ORDERED: LINAGLIPTIN PO SCH (09:00)
[2018-05-07] MEDS: CYCLOPENTOLATE HCL 1% OPHTH DROPS 2ML LEFTEYE SCH ×3 (09:00→17:00)
[2018-05-07] MEDS ORDERED: MEDICATION NOT ON FORMULARY EA (Losartan Potassium 1 TAB) PO SCH (09:00)
[2018-05-07] MEDS: CLONIDINE 0.1MG TABLET PO PRN (09:54)
[2018-05-07] MEDS: METFORMIN HCL 500MG TABLET PO SCH ×2 (09:58→18:04)
[2018-05-07 10:00] LABS: BASOPHILS % 0.8 % (0.0-2.0); EOSINOPHILS % 2.9 % (0.0-5.0); HEMATOCRIT. 34.9 % (36.0-48.0); HEMOGLOBIN. 11.3 g/dL (12.0-16.0); LYMPHOCYTES % 30.4 % (20.0-50.0); MEAN CORPUSCULAR HEMOGLOBIN 28.4 pg (28.0-32.0); MEAN CORPUSCULAR VOLUME 87.2 fL (81.0-99.0); MEAN PLATELET VOLUME 7.9 fl (7.4-10.4); MONOCYTES % 5.4 % (2.0-8.0); NEUTROPHILS % 60.5 % (40.0-76.0); PLATELET 309 x1000/uL (130-400); RED CELL DISTRIBUTION WIDTH 15.2 % (11.6-14.6)
[2018-05-07 10:30] LABS: CHLORIDE 108 mEq/L (98-107)
[2018-05-07 10:41] LABS: LDL CHOLESTEROL 141 mg/dL (5-100)
[2018-05-07 10:43] LABS: T4 FREE 1.18 ng/dL (0.76-1.46)
[2018-05-07 10:44] LABS: HDL CHOLESTEROL 49 mg/dL (40-59)
[2018-05-07] MEDS ORDERED: LOSARTAN POTASSIUM 25 MG TABLET PO NR (10:45)
[2018-05-07] MEDS ORDERED: HYDRALAZINE HCL 25MG TABLET PO NR (10:45)
[2018-05-07] MEDS ORDERED: INSULIN GLARGINE UD 100 UNITS/ML SYR SUBCUT NR (12:30)
[2018-05-07] MEDS ORDERED: RIVAROXABAN 15 MG TABLET PO SCH (17:00)
[2018-05-07] MEDS ORDERED: HYDRALAZINE HCL 50MG TABLET PO SCH (17:00)
[2018-05-07] MEDS ORDERED: LOSARTAN POTASSIUM 50 MG TABLET PO SCH (21:00)
[2018-05-07] MEDS: ATORVASTATIN CALCIUM 20MG TABLET PO SCH (22:03)
== END 2018-05-07 23:10 | disposition home or self-care (01) | DRG 600 ==
LOC: ER 13:03 → 5WST 16:38 → EDBEDREQ 16:43 → ENRESERV 17:18
PROVIDERS: ADMIT Internal Medicine; ATTEND Internal Medicine
DX: N63.20 Unspecified lump in the left breast, unspecified quadrant (principal); I82.531 Chronic embolism and thrombosis of right popliteal vein; I82.511 Chronic embolism and thrombosis of right femoral vein; Z68.43 Body mass index [BMI] 50.0-59.9, adult; D64.9 Anemia, unspecified; E11.65 Type 2 diabetes mellitus with hyperglycemia; E86.0 Dehydration; R91.1 Solitary pulmonary nodule; H70.90 Unspecified mastoiditis, unspecified ear; E66.01 Morbid (severe) obesity due to excess calories; I10 Essential (primary) hypertension; E88.09 Other disorders of plasma-protein metabolism, not elsewhere classified; I25.10 Atherosclerotic heart disease of native coronary artery without angina pectoris; N64.4 Mastodynia; Z86.73 Personal history of transient ischemic attack (TIA), and cerebral infarction without residual deficits; Z95.828 Presence of other vascular implants and grafts; Z88.6 Allergy status to analgesic agent; Z79.899 Other long term (current) drug therapy
CPT/HCPCS: 36415; 71045; 71275; 74176; 76641; 80061; 82962; 83036; 83880; 84439; 84443; 84484; 85379; 86300; 93005; 93970; 96372; 99285; A6261; J1815; Q9967; A4315

== ENCOUNTER 2018-05-23 14:25 | Inpatient (IN) | payer MEDICARE, MEDICAID ==
[~2018-05-23] VITALS: Ht 165.1 cm; Wt 149.7 kg
[2018-05-23 15:23] LABS: BASOPHILS % 0.2 % (0.0-2.0); EOSINOPHILS % 3.1 % (0.0-5.0); HEMATOCRIT. 33.5 % (36.0-48.0); LYMPHOCYTES % 31.7 % (20.0-50.0); MEAN CORPUSCULAR HEMOGLOBIN 28.5 pg (28.0-32.0); PLATELET 302 x1000/uL (130-400); RED BLOOD CELL COUNT 3.85 mill/uL (4.2-5.4); RED CELL DISTRIBUTION WIDTH 14.7 % (11.6-14.6)
[2018-05-23 15:30] LABS: CHLORIDE 106 mEq/L (98-107); INR 1.2; PROTHROMBIN TIME 12.1 sec (9.1-11.1)
[2018-05-23] MEDS ORDERED: FUROSEMIDE 20MG/2ML VIAL IVP ONE (16:30)
[2018-05-23] MEDS ORDERED: LORAZEPAM 0.5MG TABLET PO PRN (19:00)
[2018-05-23] MEDS ORDERED: MAGNESIUM/ALUMINUM HYDROXIDE/SIMETHICONE 30ML UDC PO PRN (19:00)
[2018-05-23] MEDS ORDERED: DEXTROSE 50% WATER 50ML SYRINGE IV PRN (19:00)
[2018-05-23] MEDS ORDERED: GUAIFENESIN 200MG/10ML SUGAR FREE UDC PO PRN (19:00)
[2018-05-23] MEDS ORDERED: DOCUSATE SODIUM 100MG CAPSULE PO PRN (19:00)
[2018-05-23] MEDS ORDERED: ACETAMINOPHEN 325MG TABLET PO PRN (19:00)
[2018-05-23] MEDS ORDERED: HYDROCODONE/ACETAMINOPHEN 5/325MG TABLET PO PRN (19:00)
[2018-05-23] MEDS ORDERED: DIPHENHYDRAMINE 50MG/ML VIAL IV PRN (19:00)
[2018-05-23] MEDS ORDERED: ACETAMINOPHEN 650MG SUPP PR PRN (19:00)
[2018-05-23] MEDS ORDERED: ONDANSETRON HCL 4MG/2ML INJ IV PRN (19:00)
[2018-05-23] MEDS ORDERED: IPRATROPIUM/ALBUTEROL 0.5-3(2.5)MG/3ML NEB INH PRN (19:00)
[2018-05-23] MEDS ORDERED: NA PHOS,M-B/NA PHOS,DI-BA ENEMA 118ML PR PRN (19:00)
[2018-05-23 20:13] LABS: CLARITY URINE CLEAR (CLEAR); COLOR URINE YELLOW (YELLOW); KETONES URINE NEGATIVE (NEGATIVE); LEUKOCYTE ESTERASE URINE NEGATIVE (NEGATIVE); NITRITE URINE NEGATIVE (NEGATIVE); OCCULT BLOOD URINE TRACE (NEGATIVE); PROTEIN URINE NEGATIVE (NEGATIVE); SPECIFIC GRAVITY URINE 1.007 (1.005-1.030); UROBILINOGEN URINE 0.2 E.U./dL (0.2-1.0)
[2018-05-23 20:22] LABS: *AMPHETAMINES SCREEN URINE NEGATIVE (NEGATIVE); *BARBITURATES SCREEN URINE NEGATIVE (NEGATIVE); *BENZODIAZEPINES SCREEN URINE NEGATIVE (NEGATIVE); *COCAINE SCREEN URINE NEGATIVE (NEGATIVE); METHADONE URINE SCREEN NEGATIVE (NEGATIVE); OPIATES URINE SCREEN NEGATIVE (NEGATIVE)
[2018-05-23 20:23] LABS: CANNABINOID URINE SCREEN NEGATIVE (NEGATIVE); PHENCYCLIDINE URINE SCREEN NEGATIVE (NEGATIVE)
[2018-05-23 22:00] VITALS: BP 161/71
[2018-05-23] MEDS ORDERED: FUROSEMIDE 20MG/2ML VIAL IVP SCH (22:22)
[2018-05-23] MEDS ORDERED: POTASSIUM CHLORIDE 20MEQ TABLET SR PO SCH (22:23)
[2018-05-23] MEDS ORDERED: CLONIDINE 0.1MG TABLET PO SCH (22:32)
[2018-05-23 22:35] VITALS: BP 161/71
[2018-05-23] MEDS: LINAGLIPTIN 5MG TABLET PO SCH (22:45)
[2018-05-23] MEDS: ATORVASTATIN CALCIUM 20MG TABLET PO SCH (22:46)
[2018-05-23] MEDS: HYDRALAZINE HCL 50MG TABLET PO SCH (22:46)
[2018-05-23] MEDS: BLOOD SUGAR DIAGNOSTIC STRIP TEST SCH (22:46)
[2018-05-23] MEDS: LOSARTAN POTASSIUM 50 MG TABLET PO SCH (22:46)
[2018-05-23] MEDS: INSULIN LISPRO 100 UNITS/ML SUBCUT SCH (23:28)
[2018-05-23 23:30] LABS: CREATINE KINASE 40 IU/L (26-192)
[2018-05-23 23:31] LABS: CREATINE KINASE MB FRACTION < 1.0 ng/mL (0.5-3.6)
[2018-05-23 23:59] VITALS: BP 151/70
[2018-05-24] MEDS: INSULIN GLARGINE UD 100 UNITS/ML SYR SUBCUT SCH ×2 (00:24→09:59)
[2018-05-24 04:00] VITALS: BP 185/92
[2018-05-24] MEDS: BLOOD SUGAR DIAGNOSTIC STRIP TEST SCH ×4 (06:12→21:08)
[2018-05-24] MEDS: HYDRALAZINE HCL 50MG TABLET PO SCH (06:14)
[2018-05-24] MEDS: CLONIDINE 0.1MG TABLET PO PRN ×2 (06:14→23:46)
[2018-05-24] MEDS ORDERED: LEVOTHYROXINE SODIUM 50MCG TABLET PO SCH (07:40)
[2018-05-24 07:44] LABS: CHLORIDE 106 mEq/L (98-107)
[2018-05-24 07:56] LABS: HDL CHOLESTEROL 48 mg/dL (40-59); T4 FREE 1.11 ng/dL (0.76-1.46)
[2018-05-24 07:58] LABS: LDL CHOLESTEROL 137 mg/dL (5-100)
[2018-05-24 08:00] VITALS: BP 130/79
[2018-05-24 08:12] LABS: BASOPHILS % 0.8 % (0.0-2.0); EOSINOPHILS % 3.7 % (0.0-5.0); HEMATOCRIT. 34.4 % (36.0-48.0); HEMOGLOBIN. 11.1 g/dL (12.0-16.0); LYMPHOCYTES % 40.6 % (20.0-50.0); MEAN CORPUSCULAR HEMOGLOBIN 28.1 pg (28.0-32.0); MEAN CORPUSCULAR VOLUME 86.7 fL (81.0-99.0); MEAN PLATELET VOLUME 7.9 fl (7.4-10.4); MONOCYTES % 6.8 % (2.0-8.0); NEUTROPHILS % 48.1 % (40.0-76.0); PLATELET 292 x1000/uL (130-400); RED BLOOD CELL COUNT 3.97 mill/uL (4.2-5.4); RED CELL DISTRIBUTION WIDTH 14.8 % (11.6-14.6)
[2018-05-24] MEDS ORDERED: FUROSEMIDE 40MG/4ML VIAL IVP SCH ×2 (09:00→17:15)
[2018-05-24] MEDS ORDERED: RIVAROXABAN 15 MG TABLET PO SCH (09:00)
[2018-05-24] MEDS ORDERED: ASPIRIN 81MG EC TABLET PO SCH (09:00)
[2018-05-24] MEDS: LINAGLIPTIN 5MG TABLET PO SCH (09:48)
[2018-05-24] MEDS: METFORMIN HCL 500MG TABLET PO SCH ×2 (09:49→18:01)
[2018-05-24] MEDS: LOSARTAN POTASSIUM 50 MG TABLET PO SCH ×2 (09:49→21:26)
[2018-05-24] MEDS: INSULIN LISPRO 100 UNITS/ML SUBCUT SCH ×4 (09:50→21:00)
[2018-05-24 10:41] LABS: CREATINE KINASE 46 IU/L (26-192)
[2018-05-24 10:42] LABS: CREATINE KINASE MB FRACTION < 1.0 ng/mL (0.5-3.6)
[2018-05-24 12:00] VITALS: BP 168/70
[2018-05-24] MEDS: HYDRALAZINE HCL 25MG TABLET PO SCH ×2 (15:02→21:26)
[2018-05-24 16:00] VITALS: BP 143/68
[2018-05-24 20:00] VITALS: BP 150/75
[2018-05-24 20:46] VITALS: BP 150/75
[2018-05-24] MEDS: ATORVASTATIN CALCIUM 20MG TABLET PO SCH (21:26)
[2018-05-25 00:16] VITALS: BP 175/68
[2018-05-25] MEDS ORDERED: LEVOTHYROXINE SODIUM 75MCG TABLET PO SCH (07:40)
== END 2018-05-25 00:12 | disposition home or self-care (01) | DRG 600 ==
LOC: ER 14:25 → 7WST 17:18 → EDBEDREQ 17:21 → ENRESERV 19:18
PROVIDERS: ADMIT Internal Medicine; ATTEND Internal Medicine
DX: N63.20 Unspecified lump in the left breast, unspecified quadrant (principal); I50.43 Acute on chronic combined systolic (congestive) and diastolic (congestive) heart failure; Z68.43 Body mass index [BMI] 50.0-59.9, adult; I11.0 Hypertensive heart disease with heart failure; E86.0 Dehydration; E03.9 Hypothyroidism, unspecified; D64.9 Anemia, unspecified; E11.65 Type 2 diabetes mellitus with hyperglycemia; E66.01 Morbid (severe) obesity due to excess calories; Z86.718 Personal history of other venous thrombosis and embolism; Z86.73 Personal history of transient ischemic attack (TIA), and cerebral infarction without residual deficits; Z95.828 Presence of other vascular implants and grafts; Z88.1 Allergy status to other antibiotic agents; Z91.19 Patient's noncompliance with other medical treatment and regimen
CPT/HCPCS: 36415; 71045; 80061; 80305; 82550; 82553; 82962; 83880; 84439; 84443; 84484; 93005; 93970; 96374; 99285; J1815; J1940

== ENCOUNTER 2018-09-13 22:03 | Inpatient (IN) | payer MEDICARE, MEDICAID ==
[~2018-09-13] VITALS: Ht 165.1 cm; Wt 142.2 kg
[~2018-09-13 22:03] MED LIST changes: -LOSA25TA12 PO; +LOSA25TA26 PO
[2018-09-13] MEDS ORDERED: ONDANSETRON HCL 4MG/2ML INJ IV STA (23:37)
[2018-09-13] MEDS ORDERED: MORPHINE SULFATE 4 MG/ML CPJ (NOT FOR IM USE) IV STA (23:37)
[2018-09-13] MEDS ORDERED: FAMOTIDINE 20MG/2ML VIAL IV STA (23:37)
[2018-09-13] MEDS ORDERED: SODIUM CHLORIDE 0.9% 1,000 ML IV ONE (23:37)
[2018-09-14 00:07] LABS: BASOPHILS % 0.9 % (0.0-2.0); EOSINOPHILS % 1.3 % (0.0-5.0); HEMOGLOBIN. 12.7 g/dL (12.0-16.0); LYMPHOCYTES % 25.7 % (20.0-50.0); MEAN CORPUSCULAR HEMOGLOBIN 28.6 pg (28.0-32.0); MEAN PLATELET VOLUME 8.2 fl (7.4-10.4); MONOCYTES % 5.7 % (2.0-8.0); NEUTROPHILS % 66.4 % (40.0-76.0); PLATELET 257 x1000/uL (130-400); RED BLOOD CELL COUNT 4.43 mill/uL (4.2-5.4); RED CELL DISTRIBUTION WIDTH 15.3 % (11.6-14.6)
[2018-09-14 00:14] LABS: PROTHROMBIN TIME 10.4 sec (9.6-11.0)
[2018-09-14 00:15] LABS: CHLORIDE 102 mEq/L (98-107)
[2018-09-14 08:00] VITALS: BP 168/79
[2018-09-14 08:50] VITALS: BP 168/79
[2018-09-14 12:00] VITALS: BP 187/84
[2018-09-14] MEDS ORDERED: IPRATROPIUM/ALBUTEROL 0.5-3(2.5)MG/3ML NEB INH PRN (13:00)
[2018-09-14] MEDS ORDERED: ONDANSETRON HCL 4MG/2ML INJ IV PRN (13:00)
[2018-09-14] MEDS ORDERED: ACETAMINOPHEN 325MG TABLET PO PRN (13:00)
[2018-09-14] MEDS ORDERED: HYDROCODONE/ACETAMINOPHEN 5/325MG TABLET PO PRN (13:00)
[2018-09-14] MEDS ORDERED: CLONIDINE 0.1MG TABLET PO PRN (13:00)
[2018-09-14] MEDS ORDERED: DEXTROSE 50% WATER 50ML SYRINGE IV PRN (13:15)
[2018-09-14] MEDS: LEVOTHYROXINE SODIUM 50MCG TABLET PO SCH (13:48)
[2018-09-14] MEDS: CLONIDINE 0.2MG TABLET PO SCH ×2 (13:48→21:34)
[2018-09-14] MEDS: CYCLOPENTOLATE HCL 2% OPHTH DROPS 2ML LEFTEYE SCH ×2 (14:00→21:00)
[2018-09-14] MEDS: PREDNISOLONE ACETATE 1% OPHTH DROPS 1ML LEFTEYE SCH ×2 (14:00→21:34)
[2018-09-14] MEDS: DORZOLAMIDE 2% OPHTH 10 ML BOTTLE EACHEYE SCH ×2 (14:58→21:35)
[2018-09-14] MEDS: LEVOFLOXACIN 500MG PREMIX 100 ML IV SCH (14:58)
[2018-09-14 16:00] VITALS: BP 174/72
[2018-09-14] MEDS: BLOOD SUGAR DIAGNOSTIC STRIP TEST SCH ×2 (16:09→21:34)
[2018-09-14] MEDS: METRONIDAZOLE 500 MG PREMIX 100 ML IV SCH ×2 (16:56→21:34)
[2018-09-14] MEDS: RIVAROXABAN 15 MG TABLET PO SCH (16:56)
[2018-09-14] MEDS: INSULIN LISPRO 100 UNITS/ML SUBCUT SCH ×2 (16:58→21:33)
[2018-09-14 20:00] VITALS: BP 143/68
[2018-09-14] MEDS: ATORVASTATIN CALCIUM 20MG TABLET PO SCH (21:34)
[2018-09-14 23:33] LABS: CHLORIDE 103 mEq/L (98-107)
[2018-09-14 23:36] LABS: EOSINOPHILS % 1.8 % (0.0-5.0); HEMATOCRIT. 35.7 % (36.0-48.0); HEMOGLOBIN. 11.4 g/dL (12.0-16.0); MEAN CORPUSCULAR HEMOGLOBIN 28.1 pg (28.0-32.0); MEAN CORPUSCULAR VOLUME 88.1 fL (81.0-99.0); MEAN PLATELET VOLUME 8.4 fl (7.4-10.4); MONOCYTES % 4.4 % (2.0-8.0); NEUTROPHILS % 63.8 % (40.0-76.0); PLATELET 265 x1000/uL (130-400); RED BLOOD CELL COUNT 4.06 mill/uL (4.2-5.4); RED CELL DISTRIBUTION WIDTH 15.5 % (11.6-14.6)
[2018-09-15] VITALS: BP 121/46
[2018-09-15] MEDS ORDERED: POTASSIUM CHLORIDE 20MEQ TABLET SR PO ONE (01:30)
[2018-09-15 04:00] VITALS: BP 136/66
[2018-09-15] MEDS: BLOOD SUGAR DIAGNOSTIC STRIP TEST SCH ×4 (06:38→21:00)
[2018-09-15] MEDS: METRONIDAZOLE 500 MG PREMIX 100 ML IV SCH ×3 (06:39→22:16)
[2018-09-15] MEDS: LEVOTHYROXINE SODIUM 50MCG TABLET PO SCH (06:39)
[2018-09-15] MEDS: INSULIN LISPRO 100 UNITS/ML SUBCUT SCH ×4 (06:39→22:43)
[2018-09-15 08:00] VITALS: BP 139/64
[2018-09-15] MEDS: PREDNISOLONE ACETATE 1% OPHTH DROPS 1ML LEFTEYE SCH ×2 (09:00→21:00)
[2018-09-15] MEDS: DORZOLAMIDE 2% OPHTH 10 ML BOTTLE EACHEYE SCH ×2 (09:00→21:00)
[2018-09-15] MEDS: CYCLOPENTOLATE HCL 2% OPHTH DROPS 2ML LEFTEYE SCH (09:00)
[2018-09-15] MEDS: CLONIDINE 0.2MG TABLET PO SCH (09:02)
[2018-09-15 09:45] LABS: T4 FREE 1.26 ng/dL (0.76-1.46)
[2018-09-15 11:20] LABS: CLARITY URINE CLEAR (CLEAR); COLOR URINE DARK YELLOW (YELLOW); PH URINE 5.5 (4.5-8.0); PROTEIN URINE NEGATIVE (NEGATIVE); SPECIFIC GRAVITY URINE 1.042 (1.005-1.030)
[2018-09-15 11:21] LABS: KETONES URINE TRACE (NEGATIVE); LEUKOCYTE ESTERASE URINE TRACE (NEGATIVE); NITRITE URINE POSITIVE (NEGATIVE); OCCULT BLOOD URINE TRACE (NEGATIVE)
[2018-09-15 12:00] VITALS: BP 123/75
[2018-09-15] MEDS ORDERED: INSULIN GLARGINE UD 100 UNITS/ML SYR SUBCUT SCH (12:00)
[2018-09-15] MEDS ORDERED: XALAO EACHEYE (14:50)
[2018-09-15] MEDS ORDERED: RIVA20TA MT (14:50)
[2018-09-15] MEDS ORDERED: ASPI-1160 MT (14:50)
[2018-09-15] MEDS ORDERED: LOSA50TA41 MT (14:50)
[2018-09-15 16:00] VITALS: BP 160/64
[2018-09-15] MEDS: RIVAROXABAN 15 MG TABLET PO SCH (16:36)
[2018-09-15] MEDS: LEVOFLOXACIN 500MG PREMIX 100 ML IV SCH (16:36)
[2018-09-15 20:00] VITALS: BP 135/64
[2018-09-15] MEDS: ATORVASTATIN CALCIUM 20MG TABLET PO SCH (22:15)
[2018-09-15] MEDS: HYDRALAZINE HCL 100MG TABLET PO SCH (22:16)
[2018-09-16] VITALS (7 sets, daily range): BP systolic 101–135; BP diastolic 42–56
[2018-09-16] MEDS: HYDRALAZINE HCL 100MG TABLET PO SCH ×3 (05:32→22:00)
[2018-09-16] MEDS: LEVOTHYROXINE SODIUM 50MCG TABLET PO SCH (05:33)
[2018-09-16] MEDS: METRONIDAZOLE 500 MG PREMIX 100 ML IV SCH ×3 (05:33→22:00)
[2018-09-16] MEDS: BLOOD SUGAR DIAGNOSTIC STRIP TEST SCH ×4 (06:43→20:38)
[2018-09-16] MEDS: INSULIN LISPRO 100 UNITS/ML SUBCUT SCH ×4 (06:44→20:46)
[2018-09-16 07:06] LABS: HEMATOCRIT 35.7 % (36.0-48.0); HEMOGLOBIN 11.7 g/dL (12.0-16.0); MEAN CORPUSCULAR HEMOGLOBIN 28.5 pg (28.0-32.0); MEAN CORPUSCULAR VOLUME 86.9 fL (81.0-99.0); PLATELET 243 x1000/uL (130-400); RED BLOOD CELL COUNT 4.11 mill/uL (4.2-5.4); RED CELL DISTRIBUTION WIDTH 15.4 % (11.6-14.6)
[2018-09-16 07:16] LABS: CHLORIDE 107 mEq/L (98-107)
[2018-09-16] MEDS: PREDNISOLONE ACETATE 1% OPHTH DROPS 1ML LEFTEYE SCH ×3 (08:04→20:43)
[2018-09-16] MEDS: DORZOLAMIDE 2% OPHTH 10 ML BOTTLE EACHEYE SCH ×3 (08:04→20:43)
[2018-09-16] MEDS ORDERED: INSULIN GLARGINE UD 100 UNITS/ML SYR SUBCUT SCH (10:00)
[2018-09-16] MEDS: LEVOFLOXACIN 500MG PREMIX 100 ML IV SCH (14:53)
[2018-09-16] MEDS ORDERED: RIVAROXABAN 20 MG TABLET PO SCH (17:00)
[2018-09-16] MEDS: ATORVASTATIN CALCIUM 20MG TABLET PO SCH (20:44)
== END 2018-09-16 23:26 | disposition home or self-care (01) | DRG 292 ==
LOC: ER 22:28 → 5WST 09-14 04:56 → EDBEDREQ 09-14 05:49 → EDBEDREQTM 09-14 05:49 → ENRESERV 09-14 07:29
PROVIDERS: ADMIT Internal Medicine; ATTEND Internal Medicine
DX: I11.0 Hypertensive heart disease with heart failure (principal); R17 Unspecified jaundice; Z68.43 Body mass index [BMI] 50.0-59.9, adult; E11.65 Type 2 diabetes mellitus with hyperglycemia; I50.33 Acute on chronic diastolic (congestive) heart failure; I50.32 Chronic diastolic (congestive) heart failure; R10.9 Unspecified abdominal pain; D64.9 Anemia, unspecified; E03.9 Hypothyroidism, unspecified; E66.01 Morbid (severe) obesity due to excess calories; E86.0 Dehydration; H40.9 Unspecified glaucoma; R74.0 Nonspecific elevation of levels of transaminase and lactic acid dehydrogenase [LDH]; D24.2 Benign neoplasm of left breast; Z79.890 Hormone replacement therapy; Z86.73 Personal history of transient ischemic attack (TIA), and cerebral infarction without residual deficits; Z95.828 Presence of other vascular implants and grafts; Z79.01 Long term (current) use of anticoagulants; Z79.84 Long term (current) use of oral hypoglycemic drugs; Z91.19 Patient's noncompliance with other medical treatment and regimen
CPT/HCPCS: 36415; 71045; 76705; 78227; 80061; 80076; 82962; 83605; 83880; 84439; 84443; 84484; 85027; 93005; 93306; 93970; 96361; 96374; 96375; 99285; A6261; A9537; C1893; J1815; J1956; J2270; J2405; J3490; J7030; J7040

== ENCOUNTER 2018-09-18 08:07 | Emergency (ER) | payer MEDICARE, MEDICAID ==
[~2018-09-18] VITALS: Ht 165.1 cm; Wt 204.0 kg
[~2018-09-18 08:07] MED LIST changes: +ASPI-1160 MT; -BIMA2.5D4 EACHEYE; -BRIM5DRO EACHEYE; -CLON0.1T PO; -CYCL2DRO4 LEFTEYE; -HYDR-4134 PO; -LEVO50TA8 PO; -LINA5TAB PO; -LOSA25TA26 PO; +LOSA50TA41 MT; -METF-414 PO; -OMEP40CA34 PO; -PILO15DR36 OP; -POTA10TA15 PO; -PRED1DRO LEFTEYE; +RIVA20TA MT; -TRU10 EACHEYE; +XALAO EACHEYE; -XAR15 PO
[2018-09-18] MEDS ORDERED: MAGNESIUM/ALUMINUM HYDROXIDE/SIMETHICONE 30ML UDC PO STA (08:58)
[2018-09-18 09:32] LABS: BASOPHILS % 0.2 % (0.0-2.0); EOSINOPHILS % 2.4 % (0.0-5.0); HEMATOCRIT. 40.6 % (36.0-48.0); HEMOGLOBIN. 13.1 g/dL (12.0-16.0); LYMPHOCYTES % 46.4 % (20.0-50.0); MEAN CORPUSCULAR HEMOGLOBIN 28.4 pg (28.0-32.0); MEAN CORPUSCULAR VOLUME 88.4 fL (81.0-99.0); MEAN PLATELET VOLUME 8.7 fl (7.4-10.4); MONOCYTES % 6.6 % (2.0-8.0); NEUTROPHILS % 44.4 % (40.0-76.0); PLATELET 279 x1000/uL (130-400); RED CELL DISTRIBUTION WIDTH 16.1 % (11.6-14.6)
[2018-09-18 09:42] LABS: CHLORIDE 104 mEq/L (98-107)
[2018-09-18 13:06] LABS: CLARITY URINE CLEAR (CLEAR); COLOR URINE YELLOW (YELLOW); KETONES URINE TRACE (NEGATIVE); LEUKOCYTE ESTERASE URINE 1+ (NEGATIVE); NITRITE URINE NEGATIVE (NEGATIVE); OCCULT BLOOD URINE NEGATIVE (NEGATIVE); PROTEIN URINE NEGATIVE (NEGATIVE); SPECIFIC GRAVITY URINE 1.015 (1.005-1.030)
[2018-09-18 19:27] VITALS: BP 157/91
== END 2018-09-18 19:57 | disposition home or self-care (01) ==
LOC: ER 08:13
DX: N30.00 Acute cystitis without hematuria (principal); E11.9 Type 2 diabetes mellitus without complications; I10 Essential (primary) hypertension; Z86.73 Personal history of transient ischemic attack (TIA), and cerebral infarction without residual deficits; Z79.899 Other long term (current) drug therapy; Z79.82 Long term (current) use of aspirin; Z88.6 Allergy status to analgesic agent
CPT/HCPCS: 36415; 71045; 74176; 82962; 93005; 99284

== ENCOUNTER 2018-10-06 07:12 | Inpatient (IN) | payer MEDICARE, MEDICAID ==
[~2018-10-06] VITALS: Ht 165.1 cm; Wt 147.0 kg
[2018-10-06] MEDS ORDERED: DEXT 10% WATER 1,000 ML IV ONE ×2 (07:50→08:15)
[2018-10-06] MEDS ORDERED: DEXTROSE 50% WATER 50ML SYRINGE IV ONE (08:00)
[2018-10-06 08:24] LABS: EOSINOPHILS % 1.3 % (0.0-5.0); HEMATOCRIT. 36.3 % (36.0-48.0); LYMPHOCYTES % 29.2 % (20.0-50.0); MEAN CORPUSCULAR VOLUME 87.9 fL (81.0-99.0); MEAN PLATELET VOLUME 8.2 fl (7.4-10.4); MONOCYTES % 4.3 % (2.0-8.0); NEUTROPHILS % 64.2 % (40.0-76.0); PLATELET 348 x1000/uL (130-400); RED BLOOD CELL COUNT 4.13 mill/uL (4.2-5.4); RED CELL DISTRIBUTION WIDTH 15.9 % (11.6-14.6)
[2018-10-06 08:32] LABS: CHLORIDE 108 mEq/L (98-107)
[2018-10-06 08:51] LABS: CLARITY URINE CLEAR (CLEAR); COLOR URINE YELLOW (YELLOW); KETONES URINE NEGATIVE (NEGATIVE); LEUKOCYTE ESTERASE URINE NEGATIVE (NEGATIVE); NITRITE URINE NEGATIVE (NEGATIVE); OCCULT BLOOD URINE NEGATIVE (NEGATIVE); PROTEIN URINE NEGATIVE (NEGATIVE); SPECIFIC GRAVITY URINE 1.023 (1.005-1.030); UROBILINOGEN URINE 0.2 E.U./dL (0.2-1.0)
[2018-10-06] MEDS ORDERED: IPRATROPIUM/ALBUTEROL 0.5-3(2.5)MG/3ML NEB INH PRN (11:45)
[2018-10-06] MEDS ORDERED: GUAIFENESIN 200MG/10ML SUGAR FREE UDC PO PRN (11:45)
[2018-10-06] MEDS ORDERED: DIPHENHYDRAMINE 50MG/ML VIAL IV PRN (11:45)
[2018-10-06] MEDS ORDERED: ONDANSETRON HCL 4MG/2ML INJ IV PRN (11:45)
[2018-10-06] MEDS ORDERED: ACETAMINOPHEN 650MG SUPP PR PRN (11:45)
[2018-10-06] MEDS ORDERED: MAGNESIUM/ALUMINUM HYDROXIDE/SIMETHICONE 30ML UDC PO PRN (11:45)
[2018-10-06] MEDS ORDERED: NA PHOS,M-B/NA PHOS,DI-BA ENEMA 118ML PR PRN (11:45)
[2018-10-06] MEDS ORDERED: DEXTROSE 50% WATER 50ML SYRINGE IV PRN (11:45)
[2018-10-06] MEDS ORDERED: LORAZEPAM 0.5MG TABLET PO PRN ×2 (11:45→15:45)
[2018-10-06] MEDS ORDERED: DOCUSATE SODIUM 100MG CAPSULE PO PRN (11:45)
[2018-10-06] MEDS ORDERED: ACETAMINOPHEN 325MG TABLET PO PRN (11:45)
[2018-10-06] MEDS ORDERED: HYDROCODONE/ACETAMINOPHEN 5/325MG TABLET PO PRN (11:45)
[2018-10-06 12:00] VITALS: BP 154/52
[2018-10-06] MEDS ORDERED: LINA5TAB MT (13:46)
[2018-10-06] MEDS ORDERED: LORA5SOL33 PO (13:46)
[2018-10-06] MEDS ORDERED: METF-414 PO (13:46)
[2018-10-06] MEDS: BLOOD SUGAR DIAGNOSTIC STRIP TEST SCH ×3 (13:49→21:00)
[2018-10-06] MEDS: FLUCONAZOLE 100MG TABLET PO SCH (15:06)
[2018-10-06 16:00] VITALS: BP 138/67
[2018-10-06] MEDS ORDERED: RIVAROXABAN 20 MG TABLET PO SCH (17:00)
[2018-10-06] MEDS: INSULIN LISPRO 100 UNITS/ML SUBCUT SCH ×2 (17:50→21:00)
[2018-10-06 20:00] VITALS: BP 168/72
[2018-10-06] MEDS ORDERED: ATORVASTATIN CALCIUM 20MG TABLET PO SCH (21:00)
[2018-10-06] MEDS ORDERED: LATANOPROST 0.005% OPHTH DROPS 2.5ML EACHEYE SCH (21:00)
[2018-10-06] MEDS: CLONIDINE 0.1MG TABLET PO PRN (22:52)
[2018-10-07] VITALS: BP 137/58
[2018-10-07 04:00] VITALS: BP 159/65
[2018-10-07] MEDS: BLOOD SUGAR DIAGNOSTIC STRIP TEST SCH ×3 (06:44→16:32)
[2018-10-07] MEDS: INSULIN LISPRO 100 UNITS/ML SUBCUT SCH ×3 (07:50→17:21)
[2018-10-07 08:00] VITALS: BP 171/69
[2018-10-07] MEDS: FLUCONAZOLE 100MG TABLET PO SCH (08:56)
[2018-10-07] MEDS ORDERED: ASPIRIN 81MG TABLET PO SCH (09:00)
[2018-10-07] MEDS ORDERED: LOSARTAN POTASSIUM 50 MG TABLET PO SCH (09:00)
[2018-10-07 11:45] LABS: BASOPHILS % 0.9 % (0.0-2.0); EOSINOPHILS % 2.9 % (0.0-5.0); HEMATOCRIT. 35.3 % (36.0-48.0); HEMOGLOBIN. 11.6 g/dL (12.0-16.0); LYMPHOCYTES % 34.9 % (20.0-50.0); MEAN CORPUSCULAR HEMOGLOBIN 28.9 pg (28.0-32.0); MEAN PLATELET VOLUME 7.6 fl (7.4-10.4); MONOCYTES % 5.7 % (2.0-8.0); NEUTROPHILS % 55.6 % (40.0-76.0); PLATELET 279 x1000/uL (130-400); RED BLOOD CELL COUNT 4.01 mill/uL (4.2-5.4); RED CELL DISTRIBUTION WIDTH 15.5 % (11.6-14.6)
[2018-10-07 11:52] LABS: CHLORIDE 110 mEq/L (98-107)
[2018-10-07 12:00] VITALS: BP 162/75
[2018-10-07] MEDS: CLONIDINE 0.1MG TABLET PO PRN (12:19)
[2018-10-07 17:12] LABS: *AMPHETAMINES SCREEN URINE NEGATIVE (NEGATIVE); *BARBITURATES SCREEN URINE NEGATIVE (NEGATIVE); *BENZODIAZEPINES SCREEN URINE NEGATIVE (NEGATIVE); *COCAINE SCREEN URINE NEGATIVE (NEGATIVE); METHADONE URINE SCREEN NEGATIVE (NEGATIVE); OPIATES URINE SCREEN NEGATIVE (NEGATIVE)
[2018-10-07 17:13] LABS: CANNABINOID URINE SCREEN NEGATIVE (NEGATIVE); PHENCYCLIDINE URINE SCREEN NEGATIVE (NEGATIVE)
[2018-10-07 18:17] VITALS: BP 145/75
== END 2018-10-07 19:35 | DRG 637 ==
LOC: ER 07:12 → 6EST 09:51 → EDBEDREQSVC 09:53 → EDBEDREQTM 09:53 → EDBEDREQ 09:53 → ENRESERV 11:08
PROVIDERS: ADMIT Internal Medicine; ATTEND Internal Medicine
DX: E11.649 Type 2 diabetes mellitus with hypoglycemia without coma (principal); I50.33 Acute on chronic diastolic (congestive) heart failure; N39.0 Urinary tract infection, site not specified; Z68.43 Body mass index [BMI] 50.0-59.9, adult; E66.01 Morbid (severe) obesity due to excess calories; I82.509 Chronic embolism and thrombosis of unspecified deep veins of unspecified lower extremity; I11.0 Hypertensive heart disease with heart failure; H40.9 Unspecified glaucoma; E11.65 Type 2 diabetes mellitus with hyperglycemia; R10.9 Unspecified abdominal pain; Z86.73 Personal history of transient ischemic attack (TIA), and cerebral infarction without residual deficits; Z88.8 Allergy status to other drugs, medicaments and biological substances; Z79.82 Long term (current) use of aspirin; Z79.84 Long term (current) use of oral hypoglycemic drugs; Z79.899 Other long term (current) drug therapy; Z91.14 Patient's other noncompliance with medication regimen; Z79.4 Long term (current) use of insulin
CPT/HCPCS: 36415; 71045; 76705; 80305; 81003; 82962; 83036; 83735; 84100; 84484; 93005; 93970; 96374; 97162; 97166; 99285

== ENCOUNTER 2019-07-14 18:12 | Emergency (ER) | payer OTHER, MEDICAID ==
[~2019-07-14] VITALS: Ht 172.7 cm; Wt 190.0 kg
[~2019-07-14 18:12] MED LIST changes: +LINA5TAB MT; +LORA5SOL33 PO; +METF-414 PO; -RIVA20TA MT
[2019-07-14] MEDS ORDERED: ONDANSETRON HCL 4MG/2ML INJ IV STA (18:50)
[2019-07-14] MEDS ORDERED: SODIUM CHLORIDE 0.9% 1,000 ML IV ONE (18:50)
[2019-07-14] MEDS ORDERED: MORPHINE SULFATE 4 MG/ML CPJ (NOT FOR IM USE) IV STA (18:50)
[2019-07-14 20:16] LABS: BASOPHILS % 0.7 % (0.0-2.0); EOSINOPHILS % 1.7 % (0.0-5.0); HEMATOCRIT. 35.8 % (36.0-48.0); HEMOGLOBIN. 11.7 g/dL (12.0-16.0); LYMPHOCYTES % 35.1 % (20.0-50.0); MEAN CORPUSCULAR HEMOGLOBIN 28.4 pg (28.0-32.0); MEAN CORPUSCULAR VOLUME 86.8 fL (81.0-99.0); MONOCYTES % 4.2 % (2.0-8.0); NEUTROPHILS % 58.3 % (40.0-76.0); PLATELET 293 x1000/uL (130-400); RED BLOOD CELL COUNT 4.13 mill/uL (4.2-5.4); RED CELL DISTRIBUTION WIDTH 14.7 % (11.6-14.6)
[2019-07-14 20:22] LABS: CHLORIDE 106 mEq/L (98-107)
[2019-07-14 21:59] LABS: CLARITY URINE CLOUDY (CLEAR); COLOR URINE YELLOW (YELLOW); KETONES URINE TRACE (NEGATIVE); LEUKOCYTE ESTERASE URINE NEGATIVE (NEGATIVE); NITRITE URINE NEGATIVE (NEGATIVE); OCCULT BLOOD URINE 2+ (NEGATIVE); PROTEIN URINE 2+ (NEGATIVE); SPECIFIC GRAVITY URINE 1.029 (1.005-1.030)
[2019-07-14] MEDS ORDERED: CEFTRIAXONE 1 G PREMIX 50 ML IV ONE (23:00)
[2019-07-15] MEDS ORDERED: SULFAMETHOXAZOLE/TRIMETHOPRIM 800/160MG TABLET PO ONE
[2019-07-15 02:00] VITALS: BP 162/67
== END 2019-07-15 02:16 | disposition home or self-care (01) ==
LOC: ER 18:12
DX: N39.0 Urinary tract infection, site not specified (principal); E11.9 Type 2 diabetes mellitus without complications; I10 Essential (primary) hypertension; Z98.890 Other specified postprocedural states; Z86.73 Personal history of transient ischemic attack (TIA), and cerebral infarction without residual deficits; Z79.82 Long term (current) use of aspirin; Z79.899 Other long term (current) drug therapy; Z88.6 Allergy status to analgesic agent
CPT/HCPCS: 36415; 71045; 74176; 80053; 81003; 83690; 85025; 87077; 87086; 87186; 93005; 96365; 96375; 99285; J0696; J2270; J2405; J7030

== ENCOUNTER 2020-08-20 08:27 | Inpatient (IN) | payer MEDICARE, MEDICAID ==
[~2020-08-20] VITALS: Ht 165.1 cm; Wt 132.9 kg
[2020-08-20] MEDS ORDERED: MAGNESIUM/ALUMINUM HYDROXIDE/SIMETHICONE 30ML UDC PO STA (08:52)
[2020-08-20] MEDS ORDERED: ONDANSETRON HCL 4MG/2ML INJ IV STA (08:52)
[2020-08-20] MEDS ORDERED: SODIUM CHLORIDE 0.9% 1,000 ML IV ONE (09:00)
[2020-08-20] MEDS ORDERED: ACETAMINOPHEN WITH CODEINE 300/30MG TABLET PO ONE (09:15)
[2020-08-20 09:47] LABS: BASOPHILS % 1.2 % (0.0-2.0); EOSINOPHILS % 2.4 % (0.0-5.0); HEMATOCRIT. 37.2 % (36.0-48.0); HEMOGLOBIN. 12.6 g/dL (12.0-16.0); LYMPHOCYTES % 43.9 % (20.0-50.0); MEAN CORPUSCULAR VOLUME 85.5 fL (81.0-99.0); MEAN PLATELET VOLUME 7.9 fl (7.4-10.4); MONOCYTES % 5.2 % (2.0-8.0); NEUTROPHILS % 47.3 % (40.0-76.0); PLATELET 343 x1000/uL (130-400); RED BLOOD CELL COUNT 4.35 mill/uL (4.2-5.4); RED CELL DISTRIBUTION WIDTH 15.6 % (11.6-14.6)
[2020-08-20 09:53] LABS: CHLORIDE 108 mEq/L (98-107)
[2020-08-20 09:56] LABS: INR 1.3; PROTHROMBIN TIME 13.6 sec (9.6-11.0)
[2020-08-20] MEDS ORDERED: ACETAMINOPHEN 325MG TABLET PO PRN (15:00)
[2020-08-20] MEDS ORDERED: POTASSIUM CHLORIDE 20MEQ TABLET SR PO NR (15:00)
[2020-08-20] MEDS: ENOXAPARIN 40MG/0.4ML SYR SUBCUT SCH (18:24)
[2020-08-20] MEDS: PANTOPRAZOLE SODIUM 40 MG/VIAL IV SCH (18:24)
[2020-08-20] MEDS: ASPIRIN 81MG TABLET PO SCH (18:25)
[2020-08-20] MEDS: CLONIDINE 0.1MG TABLET PO PRN (18:25)
[2020-08-20] MEDS: LOSARTAN POTASSIUM 50 MG TABLET PO SCH (18:27)
[2020-08-20 21:00] VITALS: BP 178/63
[2020-08-20] MEDS ORDERED: ZOLPIDEM TARTRATE 5MG TABLET PO PRN (21:00)
[2020-08-20] MEDS: ATORVASTATIN CALCIUM 20MG TABLET PO SCH (21:43)
[2020-08-20 23:04] VITALS: BP 173/80
[2020-08-21] VITALS: BP 198/77
[2020-08-21] MEDS: CLONIDINE 0.1MG TABLET PO PRN (00:37)
[2020-08-21] MEDS ORDERED: DEXTROSE 50% WATER 50ML SYRINGE IV PRN (01:15)
[2020-08-21 01:20] LABS: CREATINE KINASE 54 IU/L (26-192); CREATINE KINASE MB FRACTION < 1.0 ng/mL (0.5-3.6)
[2020-08-21 04:00] VITALS: BP 174/87
[2020-08-21] MEDS: ENOXAPARIN 40MG/0.4ML SYR SUBCUT SCH ×2 (05:33→18:54)
[2020-08-21] MEDS: BLOOD SUGAR DIAGNOSTIC STRIP TEST SCH ×4 (05:50→21:29)
[2020-08-21] MEDS: INSULIN LISPRO 100 UNITS/ML SUBCUT SCH ×4 (05:50→21:31)
[2020-08-21 06:28] LABS: BASOPHILS % 0.8 % (0.0-2.0); EOSINOPHILS % 1.3 % (0.0-5.0); HEMOGLOBIN. 12.1 g/dL (12.0-16.0); LYMPHOCYTES % 38.1 % (20.0-50.0); MEAN CORPUSCULAR HEMOGLOBIN 28.4 pg (28.0-32.0); MEAN CORPUSCULAR VOLUME 87.2 fL (81.0-99.0); MEAN PLATELET VOLUME 8.4 fl (7.4-10.4); MONOCYTES % 7.8 % (2.0-8.0); PLATELET 293 x1000/uL (130-400); RED BLOOD CELL COUNT 4.25 mill/uL (4.2-5.4); RED CELL DISTRIBUTION WIDTH 15.6 % (11.6-14.6)
[2020-08-21 06:33] LABS: CHLORIDE 109 mEq/L (98-107)
[2020-08-21 06:43] LABS: CREATINE KINASE 47 IU/L (26-192)
[2020-08-21 06:44] LABS: CREATINE KINASE MB FRACTION < 1.0 ng/mL (0.5-3.6)
[2020-08-21 08:00] VITALS: BP 174/73
[2020-08-21] MEDS: LOSARTAN POTASSIUM 50 MG TABLET PO SCH (09:03)
[2020-08-21] MEDS: PANTOPRAZOLE SODIUM 40 MG/VIAL IV SCH (09:03)
[2020-08-21] MEDS: ASPIRIN 81MG TABLET PO SCH (09:03)
[2020-08-21] MEDS ORDERED: LIDOCAINE HCL/PF 1% 2ML VIAL ONE (11:25)
[2020-08-21 12:00] VITALS: BP 160/83
[2020-08-21 16:00] VITALS: BP 147/67
[2020-08-21] MEDS ORDERED: ACETAMINOPHEN 650MG SUPP PR PRN (17:00)
[2020-08-21] MEDS ORDERED: HYDROCODONE/ACETAMINOPHEN 5/325MG TABLET PO PRN (17:00)
[2020-08-21] MEDS ORDERED: LACTULOSE 20G/30ML UDC PO PRN (17:00)
[2020-08-21] MEDS ORDERED: IPRATROPIUM/ALBUTEROL 0.5-3(2.5)MG/3ML NEB HHN PRN (17:00)
[2020-08-21] MEDS ORDERED: BISACODYL 10MG SUPP PR PRN (17:00)
[2020-08-21] MEDS ORDERED: ACETAMINOPHEN 325MG TABLET PO PRN (17:00)
[2020-08-21] MEDS ORDERED: LORAZEPAM 2MG/ML CPJ IV PRN (17:00)
[2020-08-21] MEDS ORDERED: CEFTRIAXONE 1 G PREMIX 50 ML IV SCH (17:15)
[2020-08-21] MEDS: CEFTRIAXONE 1,000 MG in DEXTROSE 5% WATER 50 ML IV SCH (18:53)
[2020-08-21] MEDS ORDERED: IOHEXOL-350 100 ML BOTTLE ONE (19:54)
[2020-08-21 20:00] VITALS: BP 160/88
[2020-08-21] MEDS: ATORVASTATIN CALCIUM 20MG TABLET PO SCH (21:23)
[2020-08-22] VITALS (7 sets, daily range): BP systolic 112–171; BP diastolic 55–86
[2020-08-22] MEDS: ENOXAPARIN 40MG/0.4ML SYR SUBCUT SCH ×2 (05:19→17:39)
[2020-08-22] MEDS: INSULIN LISPRO 100 UNITS/ML SUBCUT SCH ×4 (05:49→20:47)
[2020-08-22] MEDS: BLOOD SUGAR DIAGNOSTIC STRIP TEST SCH ×4 (05:53→20:47)
[2020-08-22] MEDS: PANTOPRAZOLE SODIUM 40 MG/VIAL IV SCH (08:58)
[2020-08-22] MEDS: ASPIRIN 81MG TABLET PO SCH (08:58)
[2020-08-22] MEDS: LOSARTAN POTASSIUM 50 MG TABLET PO SCH (08:58)
[2020-08-22 09:30] LABS: EOSINOPHILS % 3.6 % (0.0-5.0); HEMATOCRIT. 36.1 % (36.0-48.0); HEMOGLOBIN. 12.2 g/dL (12.0-16.0); LYMPHOCYTES % 37.9 % (20.0-50.0); MEAN CORPUSCULAR HEMOGLOBIN 28.8 pg (28.0-32.0); MEAN CORPUSCULAR VOLUME 85.1 fL (81.0-99.0); MEAN PLATELET VOLUME 8.3 fl (7.4-10.4); MONOCYTES % 5.5 % (2.0-8.0); PLATELET 283 x1000/uL (130-400); RED BLOOD CELL COUNT 4.24 mill/uL (4.2-5.4); RED CELL DISTRIBUTION WIDTH 15.5 % (11.6-14.6)
[2020-08-22 09:41] LABS: CHLORIDE 106 mEq/L (98-107)
[2020-08-22 12:45] LABS: BG BASE EXCESS 3.5 mmol/L (-2.0-2.0); BG CARBOXYHEMOGLOBIN 1.1 % (0.5-1.5); BG DEOXYHEMOGLOBIN 6.2 % (0.0-5.0); BG HCO3 ACT 28.8 mmol/L (22.0-26.0); BG METHEMOGLOBIN 0.3 % (0.0-1.5); BG OXYGEN SATURATION 93.7 % (92.0-98.5); BG OXYHEMOGLOBIN 92.4 % (94.0-97.0); BG PCO2 46.3 mmHg (35.0-45.0); BG PH 7.412 (7.350-7.450); BG PO2 65.4 mmHg (75.0-100.0); BG SAMPLE SITE RIGHT RADIAL; BG TOTAL HEMOGLOBIN 13.8 g/dL (12.0-18.0); BG VENT MODE ROOM AIR
[2020-08-22] MEDS: CLONIDINE 0.1MG TABLET PO PRN (13:50)
[2020-08-22] MEDS: CEFTRIAXONE 1,000 MG in DEXTROSE 5% WATER 50 ML IV SCH (17:38)
[2020-08-22 18:26] LABS: CLARITY URINE CLOUDY (CLEAR); COLOR URINE DARK YELLOW (YELLOW); KETONES URINE TRACE (NEGATIVE); LEUKOCYTE ESTERASE URINE NEGATIVE (NEGATIVE); NITRITE URINE NEGATIVE (NEGATIVE); OCCULT BLOOD URINE NEGATIVE (NEGATIVE); PH URINE 5.5 (4.5-8.0); PROTEIN URINE 1+ (NEGATIVE); SPECIFIC GRAVITY URINE 1.069 (1.005-1.030)
[2020-08-22] MEDS: ATORVASTATIN CALCIUM 20MG TABLET PO SCH (20:47)
[2020-08-23] VITALS: BP 139/88
[2020-08-23 04:00] VITALS: BP 150/66
[2020-08-23] MEDS: INSULIN LISPRO 100 UNITS/ML SUBCUT SCH ×4 (06:13→21:16)
[2020-08-23] MEDS: BLOOD SUGAR DIAGNOSTIC STRIP TEST SCH ×5 (06:14→21:14)
[2020-08-23] MEDS: ENOXAPARIN 40MG/0.4ML SYR SUBCUT SCH ×2 (06:15→17:29)
[2020-08-23 08:00] VITALS: BP 146/78
[2020-08-23] MEDS: LOSARTAN POTASSIUM 50 MG TABLET PO SCH (08:32)
[2020-08-23] MEDS: PANTOPRAZOLE SODIUM 40 MG/VIAL IV SCH (08:32)
[2020-08-23] MEDS: ASPIRIN 81MG TABLET PO SCH (08:32)
[2020-08-23 09:19] LABS: BASOPHILS % 1.2 % (0.0-2.0); EOSINOPHILS % 2.9 % (0.0-5.0); HEMATOCRIT. 36.2 % (36.0-48.0); HEMOGLOBIN. 12.1 g/dL (12.0-16.0); LYMPHOCYTES % 50.4 % (20.0-50.0); MEAN CORPUSCULAR HEMOGLOBIN 28.4 pg (28.0-32.0); MEAN CORPUSCULAR VOLUME 85.3 fL (81.0-99.0); MEAN PLATELET VOLUME 8.2 fl (7.4-10.4); MONOCYTES % 8.5 % (2.0-8.0); PLATELET 333 x1000/uL (130-400); RED BLOOD CELL COUNT 4.24 mill/uL (4.2-5.4); RED CELL DISTRIBUTION WIDTH 15.4 % (11.6-14.6)
[2020-08-23 09:24] LABS: CHLORIDE 105 mEq/L (98-107)
[2020-08-23 16:00] VITALS: BP 149/71
[2020-08-23] MEDS: CEFTRIAXONE 1,000 MG in DEXTROSE 5% WATER 50 ML IV SCH (17:30)
[2020-08-23 20:00] VITALS: BP 125/68
[2020-08-23] MEDS: ATORVASTATIN CALCIUM 20MG TABLET PO SCH (21:14)
[2020-08-24] VITALS (7 sets, daily range): BP systolic 131–156; BP diastolic 64–80
[2020-08-24] MEDS: ENOXAPARIN 40MG/0.4ML SYR SUBCUT SCH ×2 (06:29→17:58)
[2020-08-24] MEDS: INSULIN LISPRO 100 UNITS/ML SUBCUT SCH ×4 (07:04→23:14)
[2020-08-24] MEDS: ASPIRIN 81MG TABLET PO SCH (08:49)
[2020-08-24] MEDS: FAMOTIDINE 20MG TABLET PO SCH ×2 (08:49→23:13)
[2020-08-24] MEDS: LOSARTAN POTASSIUM 50 MG TABLET PO SCH (08:49)
[2020-08-24] MEDS: BLOOD SUGAR DIAGNOSTIC STRIP TEST SCH ×3 (12:30→21:00)
[2020-08-24] MEDS: CEFTRIAXONE 1,000 MG in DEXTROSE 5% WATER 50 ML IV SCH (17:41)
[2020-08-24] MEDS: ATORVASTATIN CALCIUM 20MG TABLET PO SCH (23:13)
[2020-08-25] VITALS: BP 155/72
[2020-08-25 04:00] VITALS: BP 154/79
[2020-08-25] MEDS: BLOOD SUGAR DIAGNOSTIC STRIP TEST SCH ×2 (06:35→12:26)
[2020-08-25] MEDS: INSULIN LISPRO 100 UNITS/ML SUBCUT SCH ×2 (06:35→13:02)
[2020-08-25] MEDS: ENOXAPARIN 40MG/0.4ML SYR SUBCUT SCH (06:47)
[2020-08-25 08:00] VITALS: BP 169/78
[2020-08-25] MEDS: LOSARTAN POTASSIUM 50 MG TABLET PO SCH (10:00)
[2020-08-25] MEDS: ASPIRIN 81MG TABLET PO SCH (10:00)
[2020-08-25] MEDS: FAMOTIDINE 20MG TABLET PO SCH (10:00)
[2020-08-25 10:14] LABS: VITAMIN B12 SERUM 500 pg/mL (211-911)
[2020-08-25 12:00] VITALS: BP 148/78
[2020-08-25] MEDS ORDERED: LORAZEPAM 0.5MG TABLET PO NR (12:30)
[2020-08-25 15:51] VITALS: BP 138/76
== END 2020-08-25 15:40 | DRG 70 ==
LOC: ER 08:30 → 8WST 12:53 → EDBEDREQ 12:59 → ENRESERV 19:05
PROVIDERS: ADMIT Internal Medicine; ATTEND Internal Medicine
DX: G93.41 Metabolic encephalopathy (principal); I50.33 Acute on chronic diastolic (congestive) heart failure; Z68.42 Body mass index [BMI] 45.0-49.9, adult; I82.509 Chronic embolism and thrombosis of unspecified deep veins of unspecified lower extremity; N39.0 Urinary tract infection, site not specified; K21.9 Gastro-esophageal reflux disease without esophagitis; I11.0 Hypertensive heart disease with heart failure; E11.9 Type 2 diabetes mellitus without complications; E66.01 Morbid (severe) obesity due to excess calories; Z20.822 Contact with and (suspected) exposure to COVID-19; R62.7 Adult failure to thrive; B95.2 Enterococcus as the cause of diseases classified elsewhere; M94.0 Chondrocostal junction syndrome [Tietze]; N20.0 Calculus of kidney; Z88.6 Allergy status to analgesic agent; Z79.899 Other long term (current) drug therapy; Z79.82 Long term (current) use of aspirin; Z79.84 Long term (current) use of oral hypoglycemic drugs; H40.9 Unspecified glaucoma; Z86.73 Personal history of transient ischemic attack (TIA), and cerebral infarction without residual deficits
CPT/HCPCS: 36415; 36600; 70496; 70498; 70551; 71045; 74176; 80048; 80053; 80061; 81003; 82140; 82375; 82550; 82553; 82607; 82805; 82962; 83036; 84145; 84443; 84484; 85025; 87426; 92610; 93005; 93970; 97110; 97162; 97166; 99285; A6261; C1893; C9113; J0696; J1650; J1815; J2405; J3490; J7030; J7040; J7060; Q9967

== ENCOUNTER 2020-11-01 15:36 | Inpatient (IN) | payer MEDICARE, MEDICAID ==
[~2020-11-01] VITALS: Ht 165.1 cm; Wt 181.4 kg
[2020-11-01] MEDS ORDERED: MORPHINE SULFATE 4 MG/ML CPJ (NOT FOR IM USE) IV STA (16:26)
[2020-11-01 17:47] LABS: BASOPHILS % 1.1 % (0.0-2.0); EOSINOPHILS % 1.5 % (0.0-5.0); HEMATOCRIT. 37.4 % (36.0-48.0); HEMOGLOBIN. 12.3 g/dL (12.0-16.0); MEAN CORPUSCULAR HEMOGLOBIN 28.7 pg (28.0-32.0); MEAN CORPUSCULAR VOLUME 87.2 fL (81.0-99.0); MEAN PLATELET VOLUME 7.7 fl (7.4-10.4); MONOCYTES % 5.1 % (2.0-8.0); NEUTROPHILS % 50.3 % (40.0-76.0); PLATELET 292 x1000/uL (130-400); RED BLOOD CELL COUNT 4.29 mill/uL (4.2-5.4); RED CELL DISTRIBUTION WIDTH 16.3 % (11.6-14.6)
[2020-11-01 17:53] LABS: CHLORIDE 107 mEq/L (98-107)
[2020-11-01 17:55] LABS: INR 1.5; PROTHROMBIN TIME 15.6 sec (9.6-11.0)
[2020-11-01] MEDS ORDERED: MORPHINE SULFATE 4 MG/ML CPJ (NOT FOR IM USE) IV ONE (20:00)
[2020-11-01 22:11] LABS: CLARITY URINE CLOUDY (CLEAR); COLOR URINE YELLOW (YELLOW); KETONES URINE TRACE (NEGATIVE); LEUKOCYTE ESTERASE URINE NEGATIVE (NEGATIVE); NITRITE URINE NEGATIVE (NEGATIVE); OCCULT BLOOD URINE NEGATIVE (NEGATIVE); PH URINE 6.5 (4.5-8.0); PROTEIN URINE TRACE (NEGATIVE); SPECIFIC GRAVITY URINE 1.037 (1.005-1.030)
[2020-11-01] MEDS ORDERED: HYDRALAZINE 20MG/ML VIAL IV NR (22:30)
[2020-11-01] MEDS ORDERED: LABETALOL HCL 20MG/4ML CARPUJECT IV ONE (22:30)
[2020-11-01 23:55] VITALS: BP 134/69
[2020-11-02] VITALS: BP 134/69
[2020-11-02] MEDS ORDERED: ENALAPRIL 2.5MG/2ML VIAL 2ML IV PRN (01:15)
[2020-11-02] MEDS ORDERED: DEXTROSE 50% WATER 50ML SYRINGE IV PRN (01:15)
[2020-11-02] MEDS ORDERED: LEVOFLOXACIN 500MG PREMIX 100 ML IV SCH (02:00)
[2020-11-02] MEDS ORDERED: ENALAPRIL 1.25 MG in DEXTROSE 5% WATER 50 ML IV PRN (03:00)
[2020-11-02 04:00] VITALS: BP 124/52
[2020-11-02] MEDS: ONDANSETRON HCL 4MG/2ML INJ IV PRN (04:10)
[2020-11-02] MEDS: DEXT 5%/0.45% NACL KCL 20MEQ/L 1,000 ML IV SCH ×2 (04:10→14:54)
[2020-11-02] MEDS: BLOOD SUGAR DIAGNOSTIC STRIP TEST SCH ×3 (06:00→18:16)
[2020-11-02] MEDS: INSULIN LISPRO 100 UNITS/ML SUBCUT SCH ×3 (07:00→18:00)
[2020-11-02] MEDS ORDERED: INSULIN LISPRO 100 UNITS/ML SUBCUT SCH (07:50)
[2020-11-02 08:00] VITALS: BP 127/59
[2020-11-02] MEDS: PANTOPRAZOLE SODIUM 40 MG/VIAL IV SCH (08:40)
[2020-11-02 12:00] VITALS: BP 118/63
[2020-11-02 16:00] VITALS: BP 153/67
[2020-11-02 20:00] VITALS: BP 138/52
[2020-11-02] MEDS ORDERED: NALOXONE HCL 0.4MG/ML VIAL IV PRN (20:45)
[2020-11-02] MEDS: MORPHINE SULFATE 2 MG/ML CPJ (NOT FOR IM USE) IV PRN (21:55)
[2020-11-03] VITALS: BP 149/86
[2020-11-03] MEDS: BLOOD SUGAR DIAGNOSTIC STRIP TEST SCH ×5 (00:22→23:24)
[2020-11-03] MEDS ORDERED: LEVOFLOXACIN 250MG PREMIX 50 ML IV SCH (02:00)
[2020-11-03] MEDS: DEXT 5%/0.45% NACL KCL 20MEQ/L 1,000 ML IV SCH (03:00)
[2020-11-03 04:00] VITALS: BP 128/54
[2020-11-03] MEDS: INSULIN LISPRO 100 UNITS/ML SUBCUT SCH ×4 (06:00→18:00)
[2020-11-03] MEDS: MORPHINE SULFATE 2 MG/ML CPJ (NOT FOR IM USE) IV PRN ×2 (06:19→13:50)
[2020-11-03] MEDS: ONDANSETRON HCL 4MG/2ML INJ IV PRN (06:58)
[2020-11-03 08:00] VITALS: BP 180/77
[2020-11-03] MEDS: PANTOPRAZOLE SODIUM 40 MG/VIAL IV SCH (09:16)
[2020-11-03] MEDS ORDERED: CEFTRIAXONE 1 G PREMIX 50 ML IV SCH (10:15)
[2020-11-03 12:00] VITALS: BP 118/67
[2020-11-03] MEDS ORDERED: LEVO500T89 MT (13:04)
[2020-11-03] MEDS ORDERED: LOSA50TA3 MT (13:04)
[2020-11-03] MEDS ORDERED: FAMO-135 MT (13:04)
[2020-11-03] MEDS ORDERED: LINA5TAB MT (13:04)
[2020-11-03] MEDS ORDERED: ATOR20TA65 PO (13:04)
[2020-11-03] MEDS ORDERED: ASPI-1160 MT (13:04)
[2020-11-03] MEDS ORDERED: METF-414 PO (13:04)
[2020-11-03] MEDS: CEFTRIAXONE 1,000 MG in DEXTROSE 5% WATER 50 ML IV SCH (13:48)
[2020-11-03] MEDS: HYDRALAZINE HCL 50MG TABLET PO SCH ×2 (13:49→21:12)
[2020-11-03 16:00] VITALS: BP 135/53
[2020-11-03 20:00] VITALS: BP 126/59
[2020-11-03 20:48] LABS: BASOPHILS % 0.7 % (0.0-2.0); EOSINOPHILS % 1.5 % (0.0-5.0); HEMATOCRIT. 35.2 % (36.0-48.0); HEMOGLOBIN. 11.8 g/dL (12.0-16.0); LYMPHOCYTES % 39.3 % (20.0-50.0); MEAN CORPUSCULAR HEMOGLOBIN 29.4 pg (28.0-32.0); MEAN CORPUSCULAR VOLUME 87.4 fL (81.0-99.0); MEAN PLATELET VOLUME 8.2 fl (7.4-10.4); MONOCYTES % 7.1 % (2.0-8.0); NEUTROPHILS % 51.4 % (40.0-76.0); PLATELET 210 x1000/uL (130-400); RED BLOOD CELL COUNT 4.02 mill/uL (4.2-5.4); RED CELL DISTRIBUTION WIDTH 15.6 % (11.6-14.6)
[2020-11-03 21:00] LABS: CHLORIDE 109 mEq/L (98-107)
[2020-11-03] MEDS: AMLODIPINE 5MG TABLET PO SCH (21:11)
[2020-11-03] MEDS: FAMOTIDINE 20MG TABLET PO SCH (21:12)
[2020-11-04] VITALS: BP 121/61
[2020-11-04 04:00] VITALS: BP 150/60
[2020-11-04] MEDS: HYDRALAZINE HCL 50MG TABLET PO SCH ×3 (06:21→22:10)
[2020-11-04 08:00] VITALS: BP 120/53
[2020-11-04] MEDS: FAMOTIDINE 20MG TABLET PO SCH ×2 (09:16→22:10)
[2020-11-04] MEDS: AMLODIPINE 5MG TABLET PO SCH ×2 (09:16→22:11)
[2020-11-04] MEDS: CEFTRIAXONE 1,000 MG in DEXTROSE 5% WATER 50 ML IV SCH (11:38)
[2020-11-04] MEDS: BLOOD SUGAR DIAGNOSTIC STRIP TEST SCH ×2 (11:57→18:13)
[2020-11-04] MEDS: INSULIN LISPRO 100 UNITS/ML SUBCUT SCH ×2 (11:58→18:23)
[2020-11-04 12:00] VITALS: BP 130/56
[2020-11-04 16:00] VITALS: BP 148/64
[2020-11-04 20:00] VITALS: BP 125/59
[2020-11-05] VITALS: BP 116/62
[2020-11-05] MEDS: BLOOD SUGAR DIAGNOSTIC STRIP TEST SCH ×5 (00:30→23:57)
[2020-11-05] MEDS: INSULIN LISPRO 100 UNITS/ML SUBCUT SCH ×4 (00:34→17:35)
[2020-11-05] MEDS: MORPHINE SULFATE 2 MG/ML CPJ (NOT FOR IM USE) IV PRN (00:42)
[2020-11-05] MEDS: ONDANSETRON HCL 4MG/2ML INJ IV PRN (00:46)
[2020-11-05 04:00] VITALS: BP 107/50
[2020-11-05] MEDS: HYDRALAZINE HCL 50MG TABLET PO SCH ×3 (06:00→21:34)
[2020-11-05] MEDS: AMLODIPINE 5MG TABLET PO SCH ×2 (09:00→21:34)
[2020-11-05] MEDS: FAMOTIDINE 20MG TABLET PO SCH ×2 (10:08→21:34)
[2020-11-05] MEDS: CEFTRIAXONE 1,000 MG in DEXTROSE 5% WATER 50 ML IV SCH (11:30)
[2020-11-05 12:00] VITALS: BP 151/51
[2020-11-05] MEDS ORDERED: ACETAMINOPHEN 650MG SUPP PR PRN (14:30)
[2020-11-05] MEDS ORDERED: BISACODYL 10MG SUPP PR PRN (14:30)
[2020-11-05] MEDS ORDERED: IPRATROPIUM/ALBUTEROL 0.5-3(2.5)MG/3ML NEB HHN PRN (14:30)
[2020-11-05] MEDS ORDERED: HYDRALAZINE 10 MG in SODIUM CHLORIDE 0.9% 49.5 ML IV PRN (14:30)
[2020-11-05] MEDS ORDERED: LACTULOSE 20G/30ML UDC PO PRN (14:30)
[2020-11-05 15:50] VITALS: BP 134/56
[2020-11-05 17:25] LABS: BASOPHILS % 0.8 % (0.0-2.0); EOSINOPHILS % 1.7 % (0.0-5.0); HEMATOCRIT. 34.2 % (36.0-48.0); HEMOGLOBIN. 11.2 g/dL (12.0-16.0); LYMPHOCYTES % 53.8 % (20.0-50.0); MEAN CORPUSCULAR HEMOGLOBIN 28.3 pg (28.0-32.0); MEAN PLATELET VOLUME 7.5 fl (7.4-10.4); MONOCYTES % 6.6 % (2.0-8.0); NEUTROPHILS % 37.1 % (40.0-76.0); PLATELET 295 x1000/uL (130-400); RED BLOOD CELL COUNT 3.98 mill/uL (4.2-5.4)
[2020-11-05 17:31] LABS: CHLORIDE 105 mEq/L (98-107)
[2020-11-05 20:00] VITALS: BP 122/54
[2020-11-06] VITALS (7 sets, daily range): BP systolic 111–149; BP diastolic 50–65
[2020-11-06] MEDS: INSULIN LISPRO 100 UNITS/ML SUBCUT SCH ×4 (00:07→17:49)
[2020-11-06] MEDS: HYDRALAZINE HCL 50MG TABLET PO SCH ×3 (05:26→22:09)
[2020-11-06] MEDS: BLOOD SUGAR DIAGNOSTIC STRIP TEST SCH ×3 (06:00→17:49)
[2020-11-06] MEDS: LORAZEPAM 1MG TABLET PO PRN (06:42)
[2020-11-06] MEDS: ACETAMINOPHEN 325MG TABLET PO PRN ×2 (06:42→18:10)
[2020-11-06] MEDS: AMLODIPINE 5MG TABLET PO SCH ×2 (08:56→22:08)
[2020-11-06] MEDS: FAMOTIDINE 20MG TABLET PO SCH ×2 (08:56→22:09)
[2020-11-07] VITALS: BP 110/59
[2020-11-07] MEDS: BLOOD SUGAR DIAGNOSTIC STRIP TEST SCH ×4 (00:06→18:09)
[2020-11-07] MEDS: INSULIN LISPRO 100 UNITS/ML SUBCUT SCH ×4 (00:07→18:00)
[2020-11-07 04:00] VITALS: BP 112/60
[2020-11-07] MEDS: HYDRALAZINE HCL 50MG TABLET PO SCH ×3 (06:21→22:55)
[2020-11-07] MEDS: ACETAMINOPHEN 325MG TABLET PO PRN (06:25)
[2020-11-07 08:00] VITALS: BP 121/55
[2020-11-07] MEDS: FAMOTIDINE 20MG TABLET PO SCH ×2 (09:37→22:52)
[2020-11-07] MEDS: AMLODIPINE 5MG TABLET PO SCH ×2 (09:37→21:00)
[2020-11-07 12:00] VITALS: BP 127/56
[2020-11-07 16:00] VITALS: BP 106/55
[2020-11-07 20:00] VITALS: BP 104/58
[2020-11-07] MEDS: LORAZEPAM 1MG TABLET PO PRN (20:35)
[2020-11-08] VITALS: BP 128/79
[2020-11-08 04:00] VITALS: BP 120/80
[2020-11-08] MEDS: BLOOD SUGAR DIAGNOSTIC STRIP TEST SCH ×4 (05:47→17:29)
[2020-11-08] MEDS: INSULIN LISPRO 100 UNITS/ML SUBCUT SCH ×4 (05:48→17:29)
[2020-11-08] MEDS: HYDRALAZINE HCL 50MG TABLET PO SCH ×3 (05:57→21:31)
[2020-11-08 08:00] VITALS: BP 143/56
[2020-11-08] MEDS: AMLODIPINE 5MG TABLET PO SCH ×2 (09:09→21:30)
[2020-11-08] MEDS: FAMOTIDINE 20MG TABLET PO SCH ×2 (09:10→21:30)
[2020-11-08 12:00] VITALS: BP 125/50
[2020-11-08 16:00] VITALS: BP 118/49
[2020-11-08 20:00] VITALS: BP 144/57
[2020-11-08] MEDS: ACETAMINOPHEN 325MG TABLET PO PRN (21:30)
[2020-11-08] MEDS: LORAZEPAM 1MG TABLET PO PRN (21:31)
[2020-11-09] VITALS (7 sets, daily range): BP systolic 98–135; BP diastolic 47–97
[2020-11-09] MEDS: INSULIN LISPRO 100 UNITS/ML SUBCUT SCH ×4 (00:35→17:21)
[2020-11-09] MEDS: BLOOD SUGAR DIAGNOSTIC STRIP TEST SCH ×4 (00:35→17:19)
[2020-11-09] MEDS: HYDRALAZINE HCL 50MG TABLET PO SCH ×3 (06:00→21:46)
[2020-11-09] MEDS: FAMOTIDINE 20MG TABLET PO SCH ×2 (09:16→20:43)
[2020-11-09] MEDS: AMLODIPINE 5MG TABLET PO SCH ×2 (09:17→20:44)
[2020-11-09 13:03] LABS: CHLORIDE 103 mEq/L (98-107)
[2020-11-09 16:48] LABS: EOSINOPHILS % 1.8 % (0.0-5.0); HEMATOCRIT. 33.9 % (36.0-48.0); HEMOGLOBIN. 11.3 g/dL (12.0-16.0); LYMPHOCYTES % 45.2 % (20.0-50.0); MEAN CORPUSCULAR HEMOGLOBIN 28.8 pg (28.0-32.0); MEAN CORPUSCULAR VOLUME 86.4 fL (81.0-99.0); MEAN PLATELET VOLUME 7.4 fl (7.4-10.4); PLATELET 258 x1000/uL (130-400); RED BLOOD CELL COUNT 3.93 mill/uL (4.2-5.4); RED CELL DISTRIBUTION WIDTH 16.1 % (11.6-14.6)
== END 2020-11-09 23:10 | DRG 444 ==
LOC: ER 15:36 → 6EST 20:49 → ENRESERV 21:55
PROVIDERS: ADMIT Internal Medicine; ATTEND Internal Medicine
DX: K80.10 Calculus of gallbladder with chronic cholecystitis without obstruction (principal); I50.33 Acute on chronic diastolic (congestive) heart failure; I82.509 Chronic embolism and thrombosis of unspecified deep veins of unspecified lower extremity; N39.0 Urinary tract infection, site not specified; I13.0 Hypertensive heart and chronic kidney disease with heart failure and stage 1 through stage 4 chronic kidney disease, or unspecified chronic kidney disease; Z68.44 Body mass index [BMI] 60.0-69.9, adult; K21.9 Gastro-esophageal reflux disease without esophagitis; K52.9 Noninfective gastroenteritis and colitis, unspecified; E11.22 Type 2 diabetes mellitus with diabetic chronic kidney disease; E66.01 Morbid (severe) obesity due to excess calories; Z20.822 Contact with and (suspected) exposure to COVID-19; M94.0 Chondrocostal junction syndrome [Tietze]; N18.9 Chronic kidney disease, unspecified; Z95.828 Presence of other vascular implants and grafts; Z79.84 Long term (current) use of oral hypoglycemic drugs; Z79.899 Other long term (current) drug therapy; Z86.73 Personal history of transient ischemic attack (TIA), and cerebral infarction without residual deficits; Z88.8 Allergy status to other drugs, medicaments and biological substances; Z79.82 Long term (current) use of aspirin; H40.9 Unspecified glaucoma
CPT/HCPCS: 36415; 71045; 74176; 76705; 80048; 80053; 81003; 82248; 82962; 83036; 85025; 87426; 93005; 97162; 99291; C1893; C9113; J0360; J0696; J1815; J1956; J2270; J2405; J3490; J7060